=== PATIENT | female | born 2000 | race Caucasian/White ===

== ENCOUNTER 2018-11-30 05:47 | Inpatient (IN) | payer OTHER ==
[2018-11-30] MEDS ORDERED: METHYLERGONOVINE 0.2MG/ML AMP IM PRN (07:47)
[2018-11-30] MEDS ORDERED: Ringers Lactate 1,000 ML IV PRN (07:47)
[2018-11-30] MEDS ORDERED: CARBOPROST TROME 250 MCG/ML IM PRN (07:47)
[2018-11-30] MEDS ORDERED: OXYTOCIN/LR 20 UNIT/1,000 ML BAG IV SCH (08:00)
[2018-11-30] MEDS ORDERED: Ringers Lactate 1,000 ML IV SCH (08:00)
[2018-11-30 08:07] LABS: RPR Titer ND
[2018-11-30 08:12] LABS: Urine Appearance CLEAR; Urine Bilirubin NEGATIVE (NEG); Urine Blood NEGATIVE (NEG); Urine Color YELLOW; Urine Glucose NEGATIVE (NEG); Urine Protein NEGATIVE (NEG); Urine pH 7.5 (5.0-7.0)
[2018-11-30 08:19] LABS: Urine Microscopic Reflex NO UMIC
[2018-11-30 08:20] LABS: Absolute Lymphocytes (CBC) 1.3 K/uL (0.7-4.9); Absolute Monocytes 0.6 K/uL (0.1-1.3); Absolute Neutrophil 6.6 K/uL (1.8-8.0); Basophils % 2.8 % (0-1.3); Eosinophils % 0.6 % (0-4.4); Hematocrit 29.6 % (36.0-45.0); MPV 9.5 fL (7.6-11.3); Monocytes % 6.9 % (3.3-12.3); RBC Red Blood Cell Count 3.45 M/uL (3.86-4.86)
[2018-11-30 08:58] VITALS: BMI 19.3
[2018-11-30 09:31] LABS: Blood Morphology Comment NOT SEEN (NOT SEEN); Platelet Estimate ADEQ; Platelets, Giant FEW
--- NOTE | 2018-11-30 09:47 | P.OBGYNHP ---
Certification for Inpatient Patient admitted to: Inpatient With expected LOS: >2 Midnights Patient will require the following post-hospital care: None Practitioner: I am a practitioner with admitting privileges, knowledge of patient current condition, hospital course, and medical plan of care. Services: Services provided to patient in accordance with Admission requirements found in Title 42 Section 412.3 of the Code of Federal Regulations Patient History Date of Service: 11/30/18 Reason for admission: INDUCTION OF LABOR History of Present Illness: Patient is a 18-year-old 1 para 0 who presents at 39 weeks and 6 days gestation for elective induction of labor. Patient is doing well. She has been having occasional contractions and pelvic pressure. She denies vaginal bleeding. No leakage of fluid. She reports good movements. She began care 10 weeks gestation and been compliant with visits. care is been complicated by small for gestational age. Patient had quad screen done which was low risk. Anatomy ultrasound was normal. She had a growth ultrasound done in mid September which revealed fetus growing well however was smaller than expected for gestational age. Dating ultrasound was performed in the 1st trimester therefore due date is confirmed. The patient also has had some anemia. Her last hemoglobin on November 01 was 10.6. See records for further details. Allergies No Known Allergies Allergy (Unverified 10/24/18 01:12) Home Medications: Ferrous Sulfate 1 tab PO DAILY 11/30/18 Vitamin [ VITAMIN*] 1 tab PO DAILY 11/30/18 - Past Medical/Surgical History Past Medical History: Patient denies medical history Past Surgical History: Patient denies surgical history - Family History Family History: Reviewed- Non-Contributory - Social History Smoking Status: Never smoker Alcohol use: No CD- Drugs: No Caffeine use: Yes Place of Residence: Home Review of Systems 10-point ROS is otherwise unremarkable Physical Examination - Vital Signs Temperature: 98.2 F Blood Pressure: 113/67 Pulse: 90 Respirations: 18 - General General: Alert and in no apparent distress HEENT: Atraumatic Neck: Supple Respiratory: Normal air movement Cardiovascular: No edema, Normal pulses Breasts: Normal configuration, Normal contours, Symmetrical Gastrointestinal: Other (Gravid small for dates) Musculoskeletal: No clubbing, No swelling Integumentary: No rashes, No breakdown Neurological: Normal gait, Normal speech - Female Pelvic External genitalia: Normal Vagina: Normal, Floris, Moist Cervix: Dilation (1 cm), Effacement (60%), station (-3) Uterus: Gravid Adnexa: Unable to evaluate - Obstetrics heart rate tracing: Category 2 Contractions: Frequency (Every 3-4 min) Amniotic membrane: AROM (Clear fluid) Laboratory Data (last 24 hrs) 11/30/18 07:40: WBC 8.9, Hgb 9.9 L, Hct 29.6 L, Plt Count 362 Microbiology Data (last 24 hrs): GBS negative Assessment and Plan - Plan Patient is a 18-year-old 1 para 0 at 39 weeks and 6 days gestation who presents for induction of labor. GBS is negative. Pitocin has been started. Rupture of membranes has been performed and clear fluid was noted. Epidural will be placed at patient's request. Continuous maternal monitoring. Routine intrapartum care. Discharge Plan: Home Plan to discharge in: 48 Hours - Advance Directives Does patient have a Living Will: No Does patient have a Durable POA for Healthcare: No
[2018-11-30] MEDS ORDERED: LIDOCAINE 2% 20 ML MDV IV ONE (10:17)
[2018-11-30] MEDS ORDERED: FENTANYL/BUPIVACAINE/NS/PF 200 MCG/100 ML BAG EP PRN (10:19)
[2018-11-30] MEDS ORDERED: BUPIVACAINE 0.25% PF 10 ML VIAL IV PRN (10:20)
[2018-11-30] MEDS ORDERED: FENTANYL CITR 100 MCG/2 ML IV ONE (10:21)
[2018-11-30] MEDS ORDERED: BUPIVACAINE 0.25% PF 10 ML VIAL ONE (14:48)
[2018-11-30] MEDS ORDERED: FENTANYL CITR 100 MCG/2 ML ONE (14:49)
[2018-11-30] MEDS ORDERED: LIDOCAINE 1% 20 ML MDV ONE (15:03)
[2018-11-30] MEDS ORDERED: BISACODYL 10 MG RECTAL SUPP RECT PRN (16:43)
[2018-11-30] MEDS ORDERED: ACETAMINOPHEN 500 MG TAB PO PRN (16:43)
[2018-11-30] MEDS ORDERED: Oxycodone HCl/Acetaminophen 1 TAB TAB PO PRN (16:43)
[2018-11-30] MEDS ORDERED: METHYLERGONOVINE 0.2 MG TAB PO PRN (16:43)
[2018-11-30] MEDS ORDERED: DOCUSATE NA/SENNA CONC 1 TAB PO PRN (16:43)
[2018-11-30] MEDS ORDERED: ONDANSETRON 4 MG (ODT) TAB PO PRN (16:43)
[2018-11-30 22:50] LABS: RPR (Rapid Plasma Reagin) NON-REACT (NON-REACT)
--- NOTE | 2018-11-30 22:58 | P.OP ---
Date of Service: 11/30/18 Findings and Operative Technique Patient delivered a viable female in cephalic presentation on 11/30/18 at _ ____ over a midline episiotomy via vacuum assisted vaginal delivery due to bradycardia.
[2018-12-01] MEDS: IBUPROFEN 200 MG TAB PO PRN ×3 (01:06→17:45)
[2018-12-01 06:15] LABS: Hematocrit 26.6 % (36.0-45.0); RBC Red Blood Cell Count 3.12 M/uL (3.86-4.86)
[2018-12-01 06:16] LABS: Absolute Lymphocytes (CBC) 1.6 K/uL (0.7-4.9); Absolute Monocytes 0.9 K/uL (0.1-1.3); Absolute Neutrophil 7.1 K/uL (1.8-8.0); Basophils % 0.1 % (0-1.3); Eosinophils % 0.5 % (0-4.4); Lymphocytes % 16.8 % (15.3-44.8); MPV 8.5 fL (7.6-11.3); Monocytes % 9.2 % (3.3-12.3)
[2018-12-01 17:58] VITALS: BP 107/62; TEMP 97.5
[2018-12-06 04:57] LABS: HBsAG Nonreactive (Nonreactive)
== END 2018-12-01 20:47 | disposition home or self-care (01) | DRG 807 ==
LOC: 2ND-WC 07:15
PROVIDERS: ADMIT Student in an Organized Health Care Education/Training Program; ATTEND Student in an Organized Health Care Education/Training Program
PROC: 10D07Z6 Extraction of Products of Conception, Vacuum, Via Natural or Artificial Opening (ICD-10-PCS; principal; 2018-11-30)
PROC: 0W8NXZZ Division of Female Perineum, External Approach (ICD-10-PCS; 2018-11-30)
DX: O76 Abnormality in fetal heart rate and rhythm complicating labor and delivery (principal); Z37.0 Single live birth; Z3A.39 39 weeks gestation of pregnancy
CPT/HCPCS: 36415; 81003; 85025; 86592; 86901; 87340; J2210; J2590; J3010

== ENCOUNTER 2018-12-30 20:56 | Emergency (ER) | payer OTHER ==
--- NOTE | 2018-12-30 23:21 | EDPHYS ---
Physician Documentation [facility] Name: Chaparrita Duggan Age: 18 yrs Sex: Female : 2000 Arrival Date: 12/30/2018 Time: 20:57 Bed 16 Private MD: ED Physician Marvin Voss HPI: 12/30 23:19 This 18 yrs old Female presents to ER via Ambulatory with complaints of pm1 Incisional Pain. 23:19 Onset: The symptoms/episode began/occurred 1 month(s) ago. Associated signs and pm1 symptoms: Pertinent negatives: abdominal pain, chest pain, constipation, dysuria, fever, shortness of breath. Modifying factors: The patient symptoms are alleviated by nothing, the patient symptoms are aggravated by nothing. The patient has not experienced similar symptoms in the past. The patient has not recently seen a physician, has an appointment scheduled, in two weeks for evaluation by Dr. Luevano. patient with vaginal delivery 1 month ago and had a second degree midline episiotomy per review of operative report. Patient reports continued incisional pain from episiotomy. 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 - Social history:: Smoking status: Patient/guardian denies using tobacco. - Ebola Screening: : Patient negative for fever greater than or equal to 101.5 degrees Fahrenheit, and additional compatible Ebola Virus Disease symptoms Patient denies exposure to infectious person Patient denies travel to an Ebola-affected area in the 21 days before illness onset No symptoms or risks identified at this time. ROS: 23:19 Constitutional: Negative for fever, chills, and weight loss, Eyes: Negative for injury, pm1 pain, redness, and discharge, ENT: Negative for injury, pain, and discharge, Neck: Negative for injury, pain, and swelling, Cardiovascular: Negative for chest pain, palpitations, and edema, Respiratory: Negative for shortness of breath, cough, wheezing, and pleuritic chest pain, Abdomen/GI: Negative for abdominal pain, nausea, vomiting, diarrhea, and constipation, Back: Negative for injury and pain, : Negative for injury, bleeding, discharge, and swelling, MS/Extremity: Negative for injury and deformity, Skin: Negative for injury, rash, and discoloration, Neuro: Negative for headache, weakness, numbness, tingling, and seizure. Exam: 23:19 Constitutional: This is a well developed, well nourished patient who is awake, alert, pm1 and in no acute distress. Head/Face: Normocephalic, atraumatic. Eyes: Pupils equal round and reactive to light, extra-ocular motions intact. Lids and lashes normal. Conjunctiva and sclera are non-icteric and not injected. Cornea within normal limits. Periorbital areas with no swelling, redness, or edema. ENT: Nares patent. No nasal discharge, no septal abnormalities noted. Tympanic membranes are normal and external auditory canals are clear. Oropharynx with no redness, swelling, or masses, exudates, or evidence of obstruction, uvula midline. Mucous membranes moist. Neck: Trachea midline, no thyromegaly or masses palpated, and no cervical lymphadenopathy. Supple, full range of motion without nuchal rigidity, or vertebral point tenderness. No Meningismus. Chest/axilla: Normal chest wall appearance and motion. Nontender with no deformity. No lesions are appreciated. Cardiovascular: Regular rate and rhythm with a normal S1 and S2. No gallops, murmurs, or rubs. Normal PMI, no JVD. No pulse deficits. Respiratory: Lungs have equal breath sounds bilaterally, clear to auscultation and percussion. No rales, rhonchi or wheezes noted. No increased work of breathing, no retractions or nasal flaring. Abdomen/GI: Soft, non-tender, with normal bowel sounds. No distension or tympany. No guarding or rebound. No evidence of tenderness throughout. Back: No spinal tenderness. No costovertebral tenderness. Full range of motion. Skin: Warm, dry with normal turgor. Normal color with no rashes, no lesions, and no evidence of cellulitis. MS/ Extremity: Pulses equal, no cyanosis. Neurovascular intact. Full, normal range of motion. 23:19 Abdomen/GI: Rectal exam: rectal tone normal, mass, is not appreciated, tenderness, is not appreciated, Aileen MCCABE. 23:19 : Pelvic Exam: External exam: is normal, Aileen MCCABE. Has some vaginal discharge that appears to be lochia. 23:19 Neuro: Orientation: is normal, Motor: is normal, Sensation: is normal, no obvious gross deficits, Gait: is steady, at a normal pace, without difficulty. Vital Signs: 21:04 BP 115 / 81; Pulse 80; Resp 17; Temp 97.8(O); Pulse Ox 98% on R/A; Weight 46.27 kg; ed1 Height 5 ft. 4 in. (162.56 cm); Pain 9/10; 22:38 BP 112 / 87; Pulse 81; Resp 16 S; Pulse Ox 100% on R/A; cc3 23:20 BP 118 / 73; Pulse 83; Resp 16 S; Pulse Ox 98% on R/A; cc3 21:04 Body Mass Index 17.51 (46.27 kg, 162.56 cm) ed1 MDM: 22:34 Patient medically screened. pm1 23:19 Data reviewed: vital signs. Data interpreted: Pulse oximetry: on room air is 98 %. pm1 Interpretation: normal. Counseling: I had a detailed discussion with the patient and/or guardian regarding: the historical points, exam findings, and any diagnostic results supporting the discharge/admit diagnosis, the need for outpatient follow up, for definitive care, an OB/Gyne specialist, to return to the emergency department if symptoms worsen or persist or if there are any questions or concerns that arise at home. Administered Medications: 23:40 Drug: Doxycycline 100 mg Route: PO; cc3 23:50 Follow up: Response: No adverse reaction cc3 23:40 Drug: [place] 5 mg-325 mg 1 tabs Route: PO; cc3 23:50 Follow up: Response: No adverse reaction; Pain is decreased cc3 Disposition: 12/31 01:58 Co-signature as Attending Physician, Marvin Voss MD. rn Disposition: 12/30/18 23:21 Discharged to Home. Impression: Incisional pain at episiotomy. - Condition is Stable. - Discharge Instructions: Episiotomy, Care After, Episiotomy. - Prescriptions for Doxycycline Hyclate 100 mg Oral Tablet - take 1 tablet by ORAL route every 12 hours; 20 tablet. Tylenol- Codeine #3 300-30 mg Oral Tablet - take 2 tablets by ORAL route every 6 hours As needed; 20 tablet. - Medication Reconciliation Form, Thank You Letter, Antibiotic Education, Prescription Opioid Use form. - Follow up: Emergency Department; When: As needed; Reason: Worsening of condition. Follow up: Debora Almaraz MD; When: 2 - 3 days; Reason: Recheck today's complaints, Continuance of care, Re-evaluation by your physician. - Problem is new. - Symptoms have improved. Signatures: Marvin Voss MD MD rn Amanda Martinez RN RN ed1 Arturo Forde ESTHETICIAN SPA ESTHETICIAN SPA pm1 Aileen Amin cc3 Corrections: (The following items were deleted from the chart) 12/30 23:22 23:21 12/30/2018 23:21 Discharged to Home. Impression: Incisional pain at episiotomy. pm1 Condition is Stable. Forms are Medication Reconciliation Form, Thank You Letter, Antibiotic Education, Prescription Opioid Use. Follow up: Emergency Department; When: As needed; Reason: Worsening of condition. Follow up: Private Physician; When: 2 - 3 days; Reason: Recheck today's complaints, Continuance of care, Re-evaluation by your physician. Problem is new. Symptoms have improved. pm1 23:57 23:22 12/30/2018 23:21 Discharged to Home. Impression: Incisional pain at episiotomy. cc3 Condition is Stable. Discharge Instructions: Episiotomy, Care After, Episiotomy. Prescriptions for Doxycycline Hyclate 100 mg Oral Tablet - take 1 tablet by ORAL route every 12 hours; 20 tablet. and Forms are Medication Reconciliation Form, Thank You Letter, Antibiotic Education, Prescription Opioid Use. Follow up: Emergency Department; When: As needed; Reason: Worsening of condition. Follow up: Debora Almaraz; When: 2 - 3 days; Reason: Recheck today's complaints, Continuance of care, Re-evaluation by your physician. Problem is new. Symptoms have improved. pm1
--- NOTE | 2018-12-30 23:21 | ER ---
Nurse's Notes [facility] Name: Chaparrita Duggan Age: 18 yrs Sex: Female : 2000 Arrival Date: 12/30/2018 Time: 20:57 Bed 16 Private MD: Diagnosis: Incisional pain at episiotomy Presentation: 12/30 21:02 Presenting complaint: Patient states: I gave a month ago and my incision where I ed1 was cut is hurting really bad. I called [facility] and they told me to come to the ER. Transition of care: patient was not received from another setting of care. Onset of symptoms was December 29, 2018. Risk Assessment: Do you want to hurt yourself or someone else? Patient reports no desire to harm self or others. Initial Sepsis Screen: Does the patient meet any 2 criteria? No. Patient's initial sepsis screen is negative. Does the patient have a suspected source of infection? No. Patient's initial sepsis screen is negative. Care prior to arrival: None. 21:02 Method Of Arrival: Ambulatory ed1 21:02 Acuity: HONG 4 ed1 Triage Assessment: 21:04 General: Appears uncomfortable, Behavior is calm, cooperative. Pain: Complains of pain ed1 in vaginal opening Pain currently is 9 out of 10 on a pain scale. Quality of pain is described as burning, stinging. 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 - Social history:: Smoking status: Patient/guardian denies using tobacco. - Ebola Screening: : Patient negative for fever greater than or equal to 101.5 degrees Fahrenheit, and additional compatible Ebola Virus Disease symptoms Patient denies exposure to infectious person Patient denies travel to an Ebola-affected area in the 21 days before illness onset No symptoms or risks identified at this time. Screenin:34 Abuse screen: Denies threats or abuse. Denies injuries from another. Nutritional cc3 screening: No deficits noted. Tuberculosis screening: No symptoms or risk factors identified. Fall Risk Ambulatory Aid- None/Bed Rest/Nurse Assist (0 pts). Gait- Normal/Bed Rest/Wheelchair (0 pts) Mental Status- Oriented to own ability (0 pts). Assessment: 22:34 Reassessment: Patient appears in no apparent distress at this time. Patient and/or cc3 family updated on plan of care and expected duration. Pain level reassessed. Patient is alert, oriented x 3, equal unlabored respirations, skin warm/dry/pink. 23:45 Reassessment: Patient appears in no apparent distress at this time. Patient and/or cc3 family updated on plan of care and expected duration. Pain level reassessed. Patient is alert, oriented x 3, equal unlabored respirations, skin warm/dry/pink. EMERSON Forde discharged the patient home with prescription given. No IV cannula in situ patient left ER vitally stable and ambulatory with her relative. Patient denies pain at this time. Patient states feeling better. Patient states symptoms have improved. Vital Signs: 21:04 BP 115 / 81; Pulse 80; Resp 17; Temp 97.8(O); Pulse Ox 98% on R/A; Weight 46.27 kg; ed1 Height 5 ft. 4 in. (162.56 cm); Pain 9/10; 22:38 BP 112 / 87; Pulse 81; Resp 16 S; Pulse Ox 100% on R/A; cc3 23:20 BP 118 / 73; Pulse 83; Resp 16 S; Pulse Ox 98% on R/A; cc3 21:04 Body Mass Index 17.51 (46.27 kg, 162.56 cm) ed1 ED Course: 20:57 Patient arrived in ED. as 21:04 Triage completed. ed1 21:04 Arm band placed on right wrist. ed1 22:34 Aileen Amin is Primary Nurse. cc3 22:34 Arturo Forde NP is PHCP. pm1 22:34 Marvin Voss MD is Attending Physician. pm1 22:34 Patient has correct armband on for positive identification. Bed in low position. Call cc3 light in reach. Side rails up X 1. Pulse ox on. NIBP on. 23:22 Debora Almaraz MD is Referral Physician. pm1 23:45 No provider procedures requiring assistance completed. Patient did not have IV access cc3 during this emergency room visit. Administered Medications: 23:40 Drug: Doxycycline 100 mg Route: PO; cc3 23:50 Follow up: Response: No adverse reaction cc3 23:40 Drug: [place] 5 mg-325 mg 1 tabs Route: PO; cc3 23:50 Follow up: Response: No adverse reaction; Pain is decreased cc3 Outcome: 23:21 Discharge ordered by MD. pm1 23:45 Discharged to home ambulatory, with family. cc3 23:45 Condition: stable 23:45 Discharge instructions given to patient, family, Instructed on discharge instructions, follow up and referral plans. medication usage, Demonstrated understanding of instructions, follow-up care, medications, Prescriptions given X 2. 23:57 Patient left the ED. cc3 Signatures: Christen Drake Erika, RN RN ed1 Arturo Forde NP CAMP HEAD COUNSELOR pm1 Aileen Amin cc3 Corrections: (The following items were deleted from the chart) 0505 04:37 05/04 22:34 Reassessment: Patient appears in no apparent distress at this time. Patient cc3 and/or family updated on plan of care and expected duration. Pain level reassessed. Patient is alert, oriented x 3, equal unlabored respirations, skin warm/dry/pink. cc3
[2018-12-30] MEDS ORDERED: HYDROCODONE/APAP 5/325 MG TAB ONE (23:50)
[2018-12-30] MEDS ORDERED: DOXYCYCLINE 100 MG CAP PO ONE (23:50)
[2018-12-31 01:02] VITALS: BP 115/81; TEMP 97.8; O2SAT 98
== END 2018-12-30 23:57 | disposition home or self-care (01) ==
LOC: ER 20:56
DX: G89.18 Other acute postprocedural pain (principal)
CPT/HCPCS: 99283

== ENCOUNTER 2019-10-10 19:11 | Emergency (ER) | payer OTHER ==
--- OUTSIDE RECORDS SUMMARY | 2019-10-10 19:13 | XMS REPORT ---
:2000 [facility] Address [address] [place] [address] Dr. Fong[address] [place] [id number] Care Team Providers Name Role Phone Unavailable Unavailable Unavailable Problems This patient has no known problems. Allergies, Adverse Reactions, Alerts This patient has no known allergies or adverse reactions. Medications This patient has no known medications.
--- NOTE | 2019-10-10 19:53 | ER ---
Nurse's Notes [facility] Name: Chaparrita Duggan Age: 19 yrs Sex: Female : 2000 Arrival Date: 10/10/2019 Time: 19:14 Bed 19 Private MD: Diagnosis: Acute bronchitis;Acute sinusitis Presentation: 10/10 19:20 Presenting complaint: Patient states: Cough x 1 week ago. 2-3 days ago R cheek pain ca1 which I thought was a toothache. Then I have runny nose with yellow-greenish drainage and headaches. The cough became worse this past few days that I throw up at times. I am at 17 wks. Transition of care: patient was not received from another setting of care. Onset of symptoms was October 10, 2019. Risk Assessment: Do you want to hurt yourself or someone else? Patient reports no desire to harm self or others. Initial Sepsis Screen: Does the patient meet any 2 criteria? No. Patient's initial sepsis screen is negative. Does the patient have a suspected source of infection? No. Patient's initial sepsis screen is negative. Care prior to arrival: None. 19:20 Method Of Arrival: Ambulatory ca1 19:20 Acuity: HONG 3 ca1 Triage Assessment: 19:30 Headache History: The patient has had previous headaches. Pain: Pain currently is 3 out wh of 10 on a pain scale. Pain began gradually, Also complains of no other associated symptoms. 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 - Coronavirus screen:: The patient has NOT traveled to [place] in the past 14 days. The patient has NOT had contact with known/suspected case of Coronavirus?. - Social history:: Smoking status: Patient denies any tobacco usage or history of. - Ebola Screening: : Patient negative for fever greater than or equal to 101.5 degrees Fahrenheit, and additional compatible Ebola Virus Disease symptoms Patient denies exposure to infectious person Patient denies travel to an Ebola-affected area in the 21 days before illness onset No symptoms or risks identified at this time. Screenin:30 Abuse screen: Denies threats or abuse. Denies injuries from another. Nutritional wh screening: No deficits noted. Tuberculosis screening: No symptoms or risk factors identified. Fall Risk None identified. Assessment: 19:30 General: Appears in no apparent distress. Behavior is calm, cooperative, appropriate wh for age. Pain: Complains of pain in right cheek and left cheek. Neuro: Level of Consciousness is awake, alert, obeys commands, Oriented to person, place, time, situation, Appropriate for age. Cardiovascular: Heart tones S1 S2. Respiratory: Reports cough that is Airway is patent Respiratory effort is even, unlabored, Respiratory pattern is regular, symmetrical, Breath sounds are clear bilaterally. GI: Abdomen is flat, non-distended. : No signs and/or symptoms were reported regarding the genitourinary system. EENT: Throat is pink. Derm: Skin is intact, is healthy with good turgor, Skin is pink, warm \T\ dry. normal. Musculoskeletal: Circulation, motion, and sensation intact. Vital Signs: 19:24 BP 112 / 69; Pulse 87; Resp 19 S; Temp 97.9(TE); Pulse Ox 99% on R/A; Weight 45.36 kg ca1 (R); Height 5 ft. 4 in. (162.56 cm) (R); Pain 5/10; 19:24 Body Mass Index 17.17 (45.36 kg, 162.56 cm) ca1 ED Course: 19:14 Patient arrived in ED. ag3 19:24 Triage completed. ca1 19:24 Arm band placed on right wrist. ca1 19:27 Alona Meneses is Primary Nurse. wh 19:30 Tootie Gaspar FNP-C is PHCP. snw 19:30 Marvin Voss MD is Attending Physician. snw 19:30 Patient has correct armband on for positive identification. Bed in low position. Call wh light in reach. Side rails up X 1. Pulse ox on. NIBP on. 20:09 No provider procedures requiring assistance completed. Patient did not have IV access wh during this emergency room visit. Administered Medications: 20:00 Drug: Augmentin 875 mg Route: PO; wh 20:06 Follow up: Response: No adverse reaction wh Outcome: 19:52 Discharge ordered by MD. villeda 20:09 Discharged to home ambulatory, with family. 20:09 Condition: stable 20:09 Discharge instructions given to patient, family, Instructed on discharge instructions, follow up and referral plans. medication usage, POC Demonstrated understanding of instructions, follow-up care, medications, POC Prescriptions given X 1. 20:10 Patient left the ED. Signatures: Tootie Gaspar, DRY END TESTER-C DRY END TESTER-Csnw Alona Meneses Mariangel Orellana ag3 Eugenia Summers RN RN ca1 Corrections: (The following items were deleted from the chart) 19:26 19:24 BP 112 / 69; Pulse 87bpm; Resp 19bpm; Spontaneous; Pulse Ox 99% RA; Temp 97.9F ca1 Temporal; 45.36 kg Reported; Height 5 ft. 4 in. Reported; BMI: 17.1; ca1
--- NOTE | 2019-10-10 19:54 | EDPHYS ---
Physician Documentation [facility] Name: Chaparrita Duggan Age: 19 yrs Sex: Female : 2000 Arrival Date: 10/10/2019 Time: 19:14 Bed 19 Private MD: ED Physician Marvin Voss HPI: 10/10 20:15 This 19 yrs old Female presents to ER via Ambulatory with complaints of snw Cough, Runny Nose, Headache. 20:15 The patient or guardian reports cough, flu symptoms, hoarse voice. Onset: The snw symptoms/episode began/occurred suddenly, 5 day(s) ago, and became persistent. Severity of symptoms: At their worst the symptoms were moderate, severe. Modifying factors: the symptoms are aggravated by at 17 weeks. Associated signs and symptoms: Pertinent positives: rhinorrhea, sore throat, vomiting, productive cough. It is unknown whether or not the patient has had similar symptoms in the past. It is unknown whether or not the patient has recently seen a physician. 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 - Coronavirus screen:: The patient has NOT traveled to [place] in the past 14 days. The patient has NOT had contact with known/suspected case of Coronavirus?. - Social history:: Smoking status: Patient denies any tobacco usage or history of. - Ebola Screening: : Patient negative for fever greater than or equal to 101.5 degrees Fahrenheit, and additional compatible Ebola Virus Disease symptoms Patient denies exposure to infectious person Patient denies travel to an Ebola-affected area in the 21 days before illness onset No symptoms or risks identified at this time. ROS: 20:14 Eyes: Negative for injury, pain, redness, and discharge. snw 20:14 Neck: Negative for injury, pain, and swelling, Cardiovascular: Negative for chest pain, palpitations, and edema. 20:14 Back: Negative for injury and pain, : Negative for injury, bleeding, discharge, and swelling, MS/Extremity: Negative for injury and deformity, Skin: Negative for injury, rash, and discoloration. 20:14 Constitutional: Positive for body aches, fatigue, malaise, poor PO intake. 20:14 ENT: Positive for hoarseness, rhinorrhea, sinus congestion, sore throat. 20:14 Respiratory: Positive for cough, with green sputum. 20:14 Abdomen/GI: Positive for nausea and vomiting. 20:14 Neuro: Positive for dizziness. Exam: 20:12 Constitutional: This is a well developed, well nourished patient who is awake, alert, snw and in no acute distress. Head/Face: Normocephalic, atraumatic. Eyes: Pupils equal round and reactive to light, extra-ocular motions intact. Lids and lashes normal. Conjunctiva and sclera are non-icteric and not injected. Cornea within normal limits. Periorbital areas with no swelling, redness, or edema. 20:12 Neck: Trachea midline, no thyromegaly or masses palpated, and no cervical lymphadenopathy. Supple, full range of motion without nuchal rigidity, or vertebral point tenderness. No Meningismus. Chest/axilla: Normal chest wall appearance and motion. Nontender with no deformity. No lesions are appreciated. Cardiovascular: Regular rate and rhythm with a normal S1 and S2. No gallops, murmurs, or rubs. Normal PMI, no JVD. No pulse deficits. 20:12 Abdomen/GI: Soft, non-tender, with normal bowel sounds. No distension or tympany. No guarding or rebound. No evidence of tenderness throughout. Back: No spinal tenderness. No costovertebral tenderness. Full range of motion. Skin: Warm, dry with normal turgor. Normal color with no rashes, no lesions, and no evidence of cellulitis. MS/ Extremity: Pulses equal, no cyanosis. Neurovascular intact. Full, normal range of motion. Neuro: Awake and alert, GCS 15, oriented to person, place, time, and situation. Cranial nerves II-XII grossly intact. Motor strength 5/5 in all extremities. Sensory grossly intact. Cerebellar exam normal. Normal gait. Psych: Awake, alert, with orientation to person, place and time. Behavior, mood, and affect are within normal limits. 20:12 ENT: Ear canal(s): are normal, TM's: are normal, Nose: Nasal mucosa: edematous, Mouth: is normal, Posterior pharynx: erythema, that is moderate, Voice: is hoarse. 20:12 Respiratory: Respirations: normal, Breath sounds: are clear throughout, incessant cough. Vital Signs: 19:24 BP 112 / 69; Pulse 87; Resp 19 S; Temp 97.9(TE); Pulse Ox 99% on R/A; Weight 45.36 kg ca1 (R); Height 5 ft. 4 in. (162.56 cm) (R); Pain 5/10; 19:24 Body Mass Index 17.17 (45.36 kg, 162.56 cm) ca1 MDM: 19:42 Patient medically screened. snw 20:13 Data reviewed: vital signs, nurses notes. Data interpreted: Pulse oximetry: on room air snw is 99 %. Interpretation: normal. Counseling: I had a detailed discussion with the patient and/or guardian regarding: the historical points, exam findings, and any diagnostic results supporting the discharge/admit diagnosis, lab results, the need for outpatient follow up, to return to the emergency department if symptoms worsen or persist or if there are any questions or concerns that arise at home. Special discussion: Based on the history and exam findings, there is no indication for further emergent testing or inpatient evaluation. I discussed with the patient/guardian the need to see the OB Gyne specialist for further evaluation of the symptoms. I discussed with the patient/guardian the need to see the primary care provider for further evaluation of the symptoms. 10/10 19:55 Order name: Urine Dipstick--Ancillary (enter results) ct 10/10 19:55 Order name: Urine --Ancillary (enter results) ct 10/10 19:33 Order name: Urine Dipstick-Ancillary (obtain specimen); Complete Time: 19:43 10/10 19:33 Order name: Urine Test (obtain specimen); Complete Time: 19:43 Administered Medications: 20:00 Drug: Augmentin 875 mg Route: PO; 20:06 Follow up: Response: No adverse reaction Disposition: 22:11 Co-signature as Attending Physician, Marvin Voss MD. rn Disposition: 10/10/19 19:52 Discharged to Home. Impression: Acute bronchitis, Acute sinusitis. - Condition is Stable. - Discharge Instructions: Acute Bronchitis, Adult, Sinusitis, Adult, Cough, Adult, Rehydration, Adult. - Prescriptions for Augmentin 875- 125 mg Oral Tablet - take 1 tablet by ORAL route every 12 hours for 10 days; 20 tablet. - Work release form, Medication Reconciliation Form, Thank You Letter, Antibiotic Education, Prescription Opioid Use form. - Follow up: Emergency Department; When: As needed; Reason: Worsening of condition. Follow up: Private Physician; When: 2 - 3 days; Reason: Recheck today's complaints, Continuance of care, Re-evaluation by your physician. 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 Impression: Acute bronchitis; Acute wh sinusitis. Condition is Stable. Forms are Medication Reconciliation Form, Thank You Letter, Antibiotic Education, Prescription Opioid Use. Follow up: Emergency Department; When: As needed; Reason: Worsening of condition. Follow up: Private Physician; When: 2 - 3 days; Reason: Recheck today's complaints, Continuance of care, Re-evaluation by your physician. snw
[2019-10-10] MEDS ORDERED: AMOX/K CLAV 875 MG TAB ONE (20:05)
[2019-10-10 20:26] LABS: Urine Blood NEGATIVE (NEG); Urine Glucose NEGATIVE (NEG); Urine Protein NEGATIVE (NEG); Urine Specific Gravity 1.025 (1.005-1.030)
[2019-10-12 01:11] VITALS: BP 112/69; TEMP 97.9; O2SAT 99
== END 2019-10-10 20:10 | disposition home or self-care (01) ==
LOC: ER 19:11
DX: O99.512 Diseases of the respiratory system complicating pregnancy, second trimester (principal); J20.9 Acute bronchitis, unspecified; Z3A.17 17 weeks gestation of pregnancy; J01.90 Acute sinusitis, unspecified
CPT/HCPCS: 81003; 81025; 99283

== ENCOUNTER 2020-05-27 13:05 | Emergency (ER) | payer OTHER, SELFPAY ==
--- OUTSIDE RECORDS SUMMARY | 2020-05-27 13:09 | XMS REPORT | Continuity of Care Document ---
:2000 Author Organization [facility] t Address [address] [place] [address] [address] [place] [address] Care Team Providers Name Role Phone Enoc Rea Attending Clinician Problems This patient has no known problems. Allergies, Adverse Reactions, Alerts This patient has no known allergies or adverse reactions. Medications This patient has no known medications. Procedures This patient has no known procedures. Encounters Start End Encounter Admission Attending Care Care Encounter Source Date/Time Date/Time Type Type Clinicians Facility Department ID 2020-04-22 2020-04-22 Office MIYA Jonas [id number] 09:34:53 10:40:34 Visit Berta Stubbs DELPHI PROGRAMMER [id number] [facility] [id number] MATERNAL [id number] & CHILD [address] [place] [address] Results This patient has no known results.
--- OUTSIDE RECORDS SUMMARY | 2020-05-27 13:09 | XMS REPORT | Summary of Care ---
:2000 Author Organization [facility] Address [address] [place] [address] Care Team Providers Name Role Phone Tess Salas Primary Care Provider Reason for Referral (Routine) Status Reason Specialty Diagnoses / Referred By Referred To Procedures Contact Contact New Request Maternal Diagnoses High-risk in third trimester [place], Medicine Procedures CONSULT MATERNAL MEDICINE ULTRASOUND Preferred Location: Tali Stubbs [place] [address] [place] [address] Reason for Visit Reason Comments Care Encounter Details Date Type Department Care Team Description 03/04/2020 Routine [facility]- [place], High- risk in third trimester (Primary Dx); Visit ARI Basnal Multiparity; [address] Anemia of mother in , antepartum [address] [facility] [address] [place], [place] [phone] Allergies No Known Allergiesdocumented as of this encounter (statuses as of 03/04/2020) Medications Medication Sig Dispensed Refills Start Date End Date Status PNV 67-iron ps-folate Take 1 capsule by 30 capsule 11 9 Active no.1-dha (VITAFOL mouth daily. ULTRA) 29 mg iron- 1 mg-200 mg CapIndications: High-risk in first trimester Miscellaneous Medical Use as directed 1 Each 0 01/07/2020 Active Supply (BLOOD PRESSURE CUFF) MiscIndications: High-risk in third trimester ferrous sulfate 325 mg Take 1 tablet by 60 tablet 3 02/25/2020 Active (65 mg iron) mouth 2 (two) tabletIndications: times daily. Anemia of mother in , antepartum ascorbic acid, vitamin Take 1 tablet by 90 tablet 2 02/25/2020 Active C, 500 mg mouth 3 (three) tabletIndications: times daily. Anemia of mother in , antepartum documented as of this encounter (statuses as of 03/04/2020) Active Problems Problem Noted Date Anemia of mother in , antepartum 02/25/2020 Pain of round ligament during 12/25/2019 Adult BMI <19 kg/sq m 08/06/2019 Multiparity 08/06/2019 Family history of diabetes mellitus 08/06/2019 High-risk in second trimester 08/06/2019 Need for prophylactic vaccination and inoculation agai nst influenza 08/06/2019 Estimated Date of Delivery Comments Yes 03/17/2020 Based on Ultrasound documented as of this encounter (statuses as of 03/04/2020) Immunizations Name Administration Dates Next Due Influenza Virus Vaccine Quad .5 mL IM 6+ MO 08/06/2019 TDAP (ADACEL) VACCINE 12/25/2019 documented as of this encounter Social History Tobacco Use Types Packs/Day Years Used Date Never Smoker Smokeless Tobacco: Never Used Alcohol Use Drinks/Week oz/Week Comments Not Currently Estimated Date of Delivery Comments Yes 03/17/2020 Based on Ultrasound Sex Assigned at Date Recorded Not on file Job Start Date Occupation Industry Not on file Not on file Not on file Travel History Travel Start Travel End No recent travel history available. COVID-19 Exposure Response Date Recorded In the last month, have you been in contact with No / Unsure 03/04/2020 2:10 PM CDT someone who was confirmed or suspected to have Coronavirus / COVID-19? documented as of this encounter Last Filed Vital Signs Vital Sign Reading Time Taken Comments Blood Pressure 95/52 03/04/2020 2:10 PM CDT Pulse 89 03/04/2020 2:10 PM CDT Temperature 36.3 C (97.4 F) 03/04/2020 2:10 PM CDT Respiratory Rate 16 03/04/2020 2:10 PM CDT Oxygen Saturation - - Inhaled Oxygen Concentration - - Weight 51.3 kg (113 lb) 03/04/2020 2:10 PM CDT Height 162.6 cm (5' 4") 03/04/2020 2:10 PM CDT Body Mass Index 19.4 03/04/2020 2:10 PM CDT documented in this encounter Progress Notes Berta Jonas, WHCNP - 03/04/2020 2:00 PM CDT Chief complaint: Chief Complaint Patient presents with Care HPI CC: Follow Up Visit Chaparrita Duggan is a 20 year old, , /White female. Patient's last menstrual period was 07/18/2019 (lmp unknown). She is 38w1d with an intrauterine . Her estimated date of delivery is 03/17/2020, by Ultrasound. She has no complaints today. She reports +FM and denies contractions, LOF and bleeding today. Histories OB History Para Term AB Living 2 1 1 1 SAB TAB Ectopic Multiple Live Births 1 # Outcome Date GA Lbr César/2nd Weight Sex Delivery Anes PTL Lv 2 Current 1 Term 11/30/18 40w0d 6 lb 5 oz (2.863 kg) F NORMAL SPONT [place] Past Medical History: Diagnosis Date Anemia during and after Family history of diabetes mellitus 08/06/2019 Family History Problem Relation Age of Onset Asthma Mother Other - see comments Mother thyroid Diabetes Father Other - see comments Sister thyroid No Significant Medical Problems Brother No Significant Medical Problems Maternal Aunt No Significant Medical Problems Maternal Uncle No Significant Medical Problems Paternal Aunt No Significant Medical Problems Paternal Uncle Colon Cancer Maternal Grandmother No Significant Medical Problems Maternal Grandfather Diabetes Paternal Grandmother Diabetes Paternal Grandfather Family Status Relation Name Status Mo Alive Fa Alive Sis Alive Bro Alive MAunt Alive MUnc Alive PAunt Alive PUnc Alive MGMo MGFa PGMo Alive PGFa Alive No past surgical history on file. Social History Socioeconomic History Marital status: Single Spouse name: Not on file Number of children: Not on file Years of education: Not on file Highest education level: Not on file Occupational History Not on file Social Needs Financial resource strain: Not on file Food insecurity: Worry: Not on file Inability: Not on file Transportation needs: Medical: Not on file Non-medical: Not on file Tobacco Use Smoking status: Never Smoker Smokeless tobacco: Never Used Substance and Sexual Activity Alcohol use: Not Currently Drug use: Never Sexual activity: Yes Partners: Male control/protection: None Comment: last sexual intercourse 08/01/2019 Lifestyle Physical activity: Days per week: Not on file Minutes per session: Not on file Stress: Not on file Relationships Social connections: Talks on phone: Not on file Gets together: Not on file Attends uatsdin service: Not on file Active member of club or organization: Not on file Attends meetings of clubs or organizations: Not on file Relationship status: Not on file Intimate partner violence: Fear of current or ex partner: Not on file Emotionally abused: Not on file Physically abused: Not on file Forced sexual activity: Not on file Other Topics Concern Not on file Social History Narrative Sabianism preference is [employer]ology. Patient lives with family. Patient has 1 cat. Social History Substance and Sexual Activity Sexual Activity Yes Partners: Male control/protection: None Comment: last sexual intercourse 08/01/2019 Labs No new labs and Routine Visit on 02/22/2020 Component Date Value C. trachomatis Nucleic A* 02/22/2020 Negative N. gonorrhoeae Nucleic A* 02/22/2020 Negative Group B Streptococcus by* 02/22/2020 Negative CoV-2 IgG 02/22/2020 Negative WBC 02/22/2020 8.60 RBC 02/22/2020 3.30* HGB 02/22/2020 9.6* HCT 02/22/2020 29.6* MCV 02/22/2020 89.7 MCH 02/22/2020 29.1 MCHC 02/22/2020 32.4 RDW-SD 02/22/2020 40.6 RDW-CV 02/22/2020 12.8 PLT 02/22/2020 349 MPV 02/22/2020 10.5 NRBC/100 WBC 02/22/2020 0.0 NRBC x10^3 02/22/2020 <0.01 GRAN MAT (NEUT) % 02/22/2020 72.2 IMM GRAN % 02/22/2020 0.80 LYMPH % 02/22/2020 20.8 MONO % 02/22/2020 5.8 EOS % 02/22/2020 0.1 BASO % 02/22/2020 0.3 GRAN MAT x10^3(ANC) 02/22/2020 6.20 IMM GRAN x10^3 02/22/2020 0.07* LYMPH x10^3 02/22/2020 1.79 MONO x10^3 02/22/2020 0.50 EOS x10^3 02/22/2020 <0.03* BASO x10^3 02/22/2020 0.03 POCT PH U 02/22/2020 . POCT U LEUK EST 02/22/2020 . POCT U NIT 02/22/2020 . POCT U PROT 02/22/2020 trace POCT U GLU 02/22/2020 neg POCT U KETONE 02/22/2020 . POCT U BLD 02/22/2020 . Routine Visit on 02/08/2020 Component Date Value POCT PH U 02/08/2020 . POCT U LEUK EST 02/08/2020 . POCT U NIT 02/08/2020 . POCT U PROT 02/08/2020 Trace POCT U GLU 02/08/2020 Neg POCT U KETONE 02/08/2020 . POCT U BLD 02/08/2020 . Urgent Care on 02/04/2020 Component Date Value SARS-CoV-2 PCR 02/04/2020 Not Detected POCT GP A STREP 02/04/2020 Negative Telemedicine Visit on 01/25/2020 Component Date Value POCT PH U 01/25/2020 n/a POCT U LEUK EST 01/25/2020 n/a POCT U NIT 01/25/2020 n/a POCT U PROT 01/25/2020 trace POCT U GLU 01/25/2020 neg POCT U KETONE 01/25/2020 n/a POCT U BLD 01/25/2020 n/a Admission on 01/18/2020, Discharged on 01/18/2020 Component Date Value SARS-CoV-2 PCR 01/18/2020 Not Detected Routine Visit on 12/25/2019 Component Date Value HIV 1/2 Ag-Ab with Reflex 12/25/2019 Negative HIV Semi-quantitative 12/25/2019 0.07 SYPH IGG 12/25/2019 Non-reactive POCT PH U 12/25/2019 . POCT U LEUK EST 12/25/2019 . POCT U NIT 12/25/2019 . POCT U PROT 12/25/2019 Trace POCT U GLU 12/25/2019 Neg POCT U KETONE 12/25/2019 . POCT U BLD 12/25/2019 . Routine Visit on 12/11/2019 Component Date Value POCT PH U 12/11/2019 . POCT U LEUK EST 12/11/2019 . POCT U NIT 12/11/2019 . POCT U PROT 12/11/2019 Trace POCT U GLU 12/11/2019 Neg POCT U KETONE 12/11/2019 . POCT U BLD 12/11/2019 . GLUC 1 HR 12/11/2019 113* WBC 12/11/2019 7.56 RBC 12/11/2019 3.42* HGB 12/11/2019 10.6* HCT 12/11/2019 32.5* MCV 12/11/2019 95.0 MCH 12/11/2019 31.0 MCHC 12/11/2019 32.6 RDW-SD 12/11/2019 44.9 RDW-CV 12/11/2019 13.0 PLT 12/11/2019 310 MPV 12/11/2019 11.3 NRBC/100 WBC 12/11/2019 0.0 NRBC x10^3 12/11/2019 <0.01 GRAN MAT (NEUT) % 12/11/2019 76.5 IMM GRAN % 12/11/2019 0.70 LYMPH % 12/11/2019 15.6 MONO % 12/11/2019 6.5 EOS % 12/11/2019 0.4 BASO % 12/11/2019 0.3 GRAN MAT x10^3(ANC) 12/11/2019 5.79 IMM GRAN x10^3 12/11/2019 0.05 LYMPH x10^3 12/11/2019 1.18* MONO x10^3 12/11/2019 0.49 EOS x10^3 12/11/2019 0.03 BASO x10^3 12/11/2019 <0.03 Radiology Radiology pending. Allergies Chaparrita has No Known Allergies. Medications Chaparrita has a current medication list which includes the following prescription(s): ascorbic acid (vitamin c), ferrous sulfate, miscellaneous medical supply, and pnv 67-iron ps-folate no.1-dha. Review of Systems Constitutional: Negative. HENT: Negative. Eyes: Negative. Respiratory: Negative. Breasts: Negative. Cardiovascular: Negative. Gastrointestinal: Negative. Genitourinary: Negative. Musculoskeletal: Negative. Skin: Negative. Neurological: Negative. Psychiatric/Behavioral: Negative. Endocrine: Endocrine negative BP 95/52 (BP Location: Right arm, Patient Position: Sitting, BP CUFF SIZE: Adult Medium) | Pulse 89 | Temp 36.3 C (97.4 F) (Oral) | Resp 16 | Ht 5' 4" (1.626 m) | Wt 113 lb (51.3 kg) | LMP 07/18/2019 (LMP Unknown) | BMI 19.40 kg/m Pregravid BMI: 16.8 Physical Exam PHYSICAL: General Exam: Neurological: Normal Abdomen: Normal gravid Extremities: Normal Pelvic Exam: Uterus: 35 Weeks Assessment/Plan Return to clinic in 1 weeks. Denies zika virus risk, signs and symptoms such as fever,rash,joint pain, conjunctivitis (red eyes),muscle pain, headaches; outside [place] travel to areas affected by zika, and FOB exposure to zika. Educated on use of mosquito repellent. High-risk in third trimester (primary encounter diagnosis) Multiparity Comment: routine Plan: POCT URINALYSIS W/O SPECIFIC GRAVITY, CONSULT MATERNAL MEDICINE ULTRASOUND Preferred Location: [place] Anemia of mother in , antepartum Comment: continue iron, PNV and iron-rich foods Plan: monitor This visit did not involve counseling and coordination that comprised more than 50% of the visit time. ARI Escamilla 03/04/2020 2:31 PM documented in this encounter Plan of Treatment Date Type Specialty Care Team Description 03/12/2020 Routine Visit OB Satellites Itzel Jonas WHCNP [address] [address] [phone] Health Maintenance Due Date Last Done Comments INFLUENZA VACCINE (#1) 2020 08/06/2019 HPV VACCINES (1 - Female 07/27/2020 Postpon ed from 2009 2-dose series) ( or ) MENINGOCOCCAL B VACCINES (1 08/05/2020 Post poned from 02/18/2008 of 2 - Risk Bexsero 2-dose (Preg nant or series) ) CHLAMYDIA SCREENING 02/21/2021 02/22/2020, 08/06/2019 Depression Screening 03/04/2021 03/04/2020 PAP SMEAR 08/06/2022 08/06/2019 DTaP,Tdap,and Td Vaccines (2 12/24/2029 12/25/2019 - Td) MENINGOCOCCAL VACCINE Aged Out No longer eligible based on patient's age to complete this to pic PNEUMOCOCCAL 0-64 YEARS Aged Out No longe r eligible based COMBINED SERIES on patient's age to complete this to pic documented as of this encounter Procedures Procedure Name Priority Date/Time Associated Comments Diagnosis POCT URINALYSIS W/O Routine 03/04/2020 2:12 PM High-risk preg arina Results for this SPECIFIC GRAVITY CDT in third trimester proce dure are in the results section. documented in this encounter Results POCT URINALYSIS W/O SPECIFIC GRAVITY (03/04/2020 2:12 PM CDT) Pathologist Sig nature POCT PH U . 5 - 8 mg/dl POCT U LEUK EST . Negative - Negative POCT U NIT . Negative - Negative POCT U PROT Trace Negative - Negative POCT U GLU Neg Negative - Negative POCT U KETONE . Negative - Negative POCT U BLD . Negative - Negative Specimen Urine - URINE, CLEAN CATCH documented in this encounter Visit Diagnoses Diagnosis High-risk in third trimester - Primary Multiparity Anemia of mother in , antepartu m Anemia, antepartum documented in this encounter Insurance Payer Benefit Plan / Subscriber ID Effective Phone Address [facility] xxxxxxxxx 2020-Prese [address] Medic aid HEALTH CHOICE - [place] [id number] 1 MANAGED MEDICAID [place], [place] MEDICAID [phone] documented as of this encounter
--- OUTSIDE RECORDS SUMMARY | 2020-05-27 13:09 | XMS REPORT | Summary of Care ---
:2000 Author Organization [facility] Address [address] [place] [address] Care Team Providers Name Role Phone Tess Salas OVERCASTER Primary Care Provider Reason for Visit Reason Comments Assessment Encounter Details Date Type Department Care Team Description 03/11/2020 Telephone [facility]- A Berta Tello, Assessment [address] [facility] [place] [address] [facility] [address] [phone] [place], [place] [address] [phone] Allergies No Known Allergiesdocumented as of this encounter (statuses as of 03/11/2020) Medications Medication Sig Dispensed Refills Start Date End Date Status PNV 67-iron ps-folate Take 1 capsule by 30 capsule 11 08/27/ 9 Active no.1-dha (VITAFOL mouth daily. ULTRA) [...] as of this encounter (statuses as of 03/11/2020) Active Problems Problem Noted Date Anemia of [...] as of this encounter (statuses as of 03/11/2020) Immunizations Name Administration Dates Next Due Influenza [...] of this encounter Last Filed Vital Signs Not on filedocumented in this encounter Plan of Treatment Date Type Specialty Care Team Description 03/12/2020 Routine Visit OB Satellites Itzel Jonas, CNP [address] [address] [phone] Health Maintenance Due Date Last Done Comments [...] to pic documented as of this encounter Results Not on filedocumented in this encounter Insurance Payer Benefit Plan / Subscriber ID Effective Phone Address [facility] xxxxxxxxx 2020-Prese [address] Medic aid HEALTH CHOICE - HEALTH CHOICE nt [id number] 1 MANAGED MEDICAID [place], [place] [phone] documented as of this encounter
--- OUTSIDE RECORDS SUMMARY | 2020-05-27 13:10 | XMS REPORT | Summary of Care ---
:2000 Author Organization [facility] Address [address] [place] [address] Care Team Providers Name Role Phone Tess Salas Primary Care Provider Reason for Visit Reason Comments ULTRASOUND (Routine) Status Reason Specialty Diagnoses / Referred By Referred To Procedures Contact Contact Closed Maternal Diagnoses High-risk in third trimester [place], Medicine Procedures CONSULT MATERNAL MEDICINE ULTRASOUND Preferred [facility] [place] [facility] [address] [place] [address] Encounter Details Date Type Department Care Team Description 03/11[facility]2020 [facility] [place] size-date discrepancy in third trimester; Ultrasound- Tali VILLANUEVA IUGR (intrauterine growth restriction) a ffecting care of mother, third trimester, not applicable or unspecified fetus [address] [phone] Allergies No Known Allergiesdocumented as of this [...] 03/12/2020 Routine Visit [facility] Itzel Jonas, [facility] [address] [place], [place] [address] [phone] Health Maintenance Due Date Last Done Comments [...] Results Not on filedocumented in this encounter Visit Diagnoses Diagnosis Uterine size-date discrepancy in third t rimester Uterine size date discrepancy, antepartu m condition or complication IUGR (intrauterine growth restriction) a ffecting care of mother, third trimester, not applicable or unspecified fetus documented in this encounter Insurance Payer Benefit Plan / Subscriber ID Effective Phone Address [employer] [facility] COMMUNITY xxxxxxxxx 2020-Prese [address] Medic aid HEALTH CHOICE - HEALTH CHOICE nt [id number] 1 MANAGED MEDICAID [place], [place] MEDICAID [id number] documented as of this encounter
--- OUTSIDE RECORDS SUMMARY | 2020-05-27 13:10 | XMS REPORT | Summary of Care ---
:1998 Author Organization [facility] Address [address] [place] [address] Care Team Providers Name Role Phone Tess Salas Primary Care Provider Reason for Referral (Routine) Status Reason Specialty Diagnoses / Referred By Referred To Procedures Contact Contact New Request Infectious Disease Diagnoses HIV antibody positive Jaylen Gaviria Procedures CONSULT INFECTIOUS DISEASE MD Ruthie [address] [place] [id number] [place] [id number] Reason for Visit Reason Comments Results Encounter Details Date Type Department Care Team Description 04/01/2020 Telephone [facility] and Rowena Armando MD Results Clinics [address] [place] [id number] [place] [address] Allergies No Known Allergiesdocumented as of this encounter (statuses as of 04/01/2020) Medications Medication Sig Dispensed Refills Start Date End Date Status vitamin w/FA Take 1 tablet by 100 tablet 3 03/13/2020 Active tabletIndications: mouth daily. Adult BMI <19 kg/sq m, Multiparity, Anemia of mother in , antepartum, 39 weeks gestation of , (spontaneous vaginal delivery), Single live , Anemia, , Periurethral laceration, delivered, current hospitalization, Family history of diabetes mellitus, High-risk in second trimester, Need for prophylactic vaccination and inoculation against influenza, Pain of round ligament during docusate calcium 240 Take 1 capsule by 60 capsule 1 03/13/2020 Active mg capsuleIndications: mouth once daily Adult BMI <19 kg/sq m, as needed for Multiparity, Anemia of Constipation. mother in , antepartum, 39 weeks gestation of , (spontaneous vaginal delivery), Single live , Anemia, , Periurethral laceration, delivered, current hospitalization, Family history of diabetes mellitus, High-risk in second trimester, Need for prophylactic vaccination and inoculation against influenza, Pain of round ligament during ferrous sulfate 325 mg Take 1 tablet by 60 tablet 2 03/13/2020 Active (65 mg iron) mouth 2 (two) tabletIndications: times daily. Adult BMI <19 kg/sq m, Multiparity, Anemia of mother in , antepartum, 39 weeks gestation of , (spontaneous vaginal delivery), Single live , Anemia, , Periurethral laceration, delivered, current hospitalization, Family history of diabetes mellitus, High-risk in second trimester, Need for prophylactic vaccination and inoculation against influenza, Pain of round ligament during ibuprofen 600 mg Take 1 tablet by 60 tablet 1 03/13/2020 Active tabletIndications: mouth every 6 Adult BMI <19 kg/sq m, (six) hours as Multiparity, Anemia of needed (Pain). mother in , Take with food or antepartum, 39 weeks milk. gestation of , (spontaneous vaginal delivery), Single live , Anemia, , Periurethral laceration, delivered, current hospitalization, Family history of diabetes mellitus, High-risk in second trimester, Need for prophylactic vaccination and inoculation against influenza, Pain of round ligament during vit Take 1 Packet by 30 Each 6 03/14/2020 Active 60-xhvm-xhetl-dha mouth daily. (SELECT-OB + DHA) 29 mg iron-1 mg -250 mg combo packIndications: 39 weeks gestation of documented as of this encounter (statuses as of 04/01/2020) Active Problems Problem Noted Date (spontaneous vaginal delivery) 03/12/2020 Single live 03/12/2020 Anemia, 03/12/2020 Periurethral laceration, delivered, current hospitaliz ation 03/12/2020 39 weeks gestation of 03/11/2020 Poor growth affecting management of mother in th ird trimester 03/11/2020 Anemia of mother in , antepartum 02/25/2020 Pain of round ligament during 12/25/2019 Adult BMI <19 kg/sq m 08/06/2019 Multiparity 08/06/2019 Family history of diabetes mellitus 08/06/2019 High-risk in second trimester 08/06/2019 Need for prophylactic vaccination and inoculation agai nst influenza 08/06/2019 documented as of this encounter (statuses as of 04/01/2020) Immunizations Name Administration Dates Next Due Influenza Virus Vaccine Quad .5 mL IM 6+ MO 08/06/2019 TDAP (ADACEL) VACCINE 12/25/2019 documented as of this encounter Social History Tobacco Use Types Packs/Day Years Used Date Never Smoker Smokeless Tobacco: Never Used Alcohol Use Drinks/Week oz/Week Comments Not Currently Sex Assigned at Date Recorded Not on file COVID-19 Exposure Response Date Recorded In the last month, have you been in contact with No / Unsure 03/11/2020 6:01 PM CDT someone who was confirmed or suspected to have Coronavirus / COVID-19? documented as of this encounter Last Filed Vital Signs Not on filedocumented in this encounter Plan of Treatment Health Maintenance Due Date Last Done Comments INFLUENZA VACCINE (#1) 2020 08/06/2019 HPV VACCINES (1 - 2-dose 07/27/2020 Postpon ed from 2009 series) ( or ) MENINGOCOCCAL B VACCINES [...] filedocumented in this encounter Visit Diagnoses Diagnosis HIV antibody positive - Primary documented in this encounter Insurance Payer Benefit Plan / Subscriber ID Effective Phone Address [facility] [id number] 2020-Prese [address] Medic aid HEALTH CHOICE - HEALTH CHOICE nt [id number] 1 MANAGED MEDICAID [place], [place]ID [phone] documented as of this encounter
--- OUTSIDE RECORDS SUMMARY | 2020-05-27 13:10 | XMS REPORT | Summary of Care ---
:[address] [facility] Address [address] [place] [address] Care Team Providers Name Role Phone Tess Salas Primary Care Provider Reason for Referral (Routine) Status Reason Specialty Diagnoses / Referred By Referred To Procedures Contact Contact New Request Infectious Disease Diagnoses HIV antibody positive Jaylen Gaviria Procedures CONSULT INFECTIOUS DISEASE MD Ruthie [address] [place] [id number] [place] [id number] Reason for Visit Reason Comments Results Encounter Details Date Type Department Care Team Description 04/01/2020 Telephone [facility] and Rowena Armando MD Results Clinics [address] [place] [phone] [place] [address] Allergies No Known Allergiesdocumented [...] Packet by 30 Each 6 03/14/2020 Active 26-pjca-kzzff-dha mouth daily. (SELECT-OB + DHA) 29 mg [...] ID Effective Phone Address T e [employer] [facility] [id number] 2020-Prese [address] Medic aid HEALTH CHOICE - HEALTH CHOICE nt [phone] 1 MANAGED MEDICAID [place] [phone] documented as of this encounter
--- OUTSIDE RECORDS SUMMARY | 2020-05-27 13:10 | XMS REPORT | Summary of Care ---
:2000 Author Organization [facility] Address [address] [place] [address] Care Team Providers Name Role Phone Tess Salas [employer] REPRESENTATIVE Primary Care Provider Reason for Visit Reason Comments Rx Concern/Question prenatabs not covered by ins Encounter Details Date Type Department Care Team Description 03/14/2020 Telephone [facility] RMP- Berta Jonas Rx Concern/Question ARI Schofield (prenatabs not covered [address] [place] [address] by ins) [place] [phone] Allergies No Known Allergiesdocumented as of this encounter (statuses as of 03/14/2020) Medications Medication Sig Dispensed Refills Start Date [...] Packet by 30 Each 6 03/14/2020 Active 74-dzdz-qqmxe-dha mouth daily. (SELECT-OB + DHA) 29 mg iron-1 mg -250 mg combo packIndications: 39 weeks gestation of documented as of this encounter (statuses as of 03/14/2020) Active Problems Problem Noted Date (spontaneous vaginal [...] as of this encounter (statuses as of 03/14/2020) Immunizations Name Administration Dates Next Due Influenza [...] Treatment Date Type Specialty Care Team Description 04/01/2020 Routine Visit [facility] Itzel Jonas, CNP [address] [place], [place] [address] [phone] Health Maintenance Due Date Last Done Comments [...] filedocumented in this encounter Visit Diagnoses Diagnosis 39 weeks gestation of - Primar y state, incidental documented in this encounter Insurance Payer Benefit Plan / Subscriber ID Effective Phone Address [facility] xxxxxxxxx 2020-K[address] Medic aid HEALTH CHOICE - HEALTH CHOICE nt [id number] 1 MANAGED MEDICAID [place], [place] [phone] documented as of this encounter
--- OUTSIDE RECORDS SUMMARY | 2020-05-27 13:10 | XMS REPORT | Summary of Care ---
:2000 Author Organization [facility] - [facility] Address [address] [place] [id number] Care Team Providers Name Role Phone Tess Salas Primary Care Provider Reason for Referral (Routine) Status Reason Specialty Diagnoses / Referred By Referred To Procedures Contact Contact New Request OB Satellites Diagnoses Adult BMI <19 kg/sq m Multiparity Anemia of mother in , antepartum 39 weeks gestation of (spontaneous vaginal delivery) Single live Anemia, Georgia Phillips FNP Periurethral lac eration, delivered, current hospitalization Family history of diabetes mellitus High-risk in second trimester Need for prophylactic vaccination and inoculation against influenza Pain of round ligament during [address] Procedures DISCHARGE FOLLOW-UP: ART PSYCHOTHERAP[place] [address] Reason for Visit Auth/Cert Status Reason Specialty Diagnoses / Referred By Contact Refe rred To Contact Procedures Obstetrics Diagnoses 39 weeks gestation [address] [address] Phone: Fax: Encounter Details Date Type Department Care Team Description 03/11/2020 - Hospital Encounter Mother Baby Unit Jaylen Gaviria (spontaneous 03/13/2020 (J7C) MD Ruthie vaginal delivery) [address] [place] [address] [id number] [place] [address] [id number] Allergies No Known Allergiesdocumented as of this encounter (statuses as of 03/13/2020) Medications Medication Sig Dispensed Refills Start Date End Date Status vitamin Take 1 tablet 100 tablet 3 03/13/2020 Active w/FA by mouth tabletIndications: daily. Adult BMI <19 kg/sq m, Multiparity, Anemia of mother in , antepartum, 39 weeks gestation of , (spontaneous vaginal delivery), Single live , Anemia, , Periurethral laceration, delivered, current hospitalization, Family history of diabetes mellitus, High-risk in second trimester, Need for prophylactic vaccination and inoculation against influenza, Pain of round ligament during docusate calcium Take 1 capsule 60 capsule 1 03/13/2020 Active 240 mg by mouth once capsuleIndications: daily as Adult BMI <19 kg/sq needed for m, Multiparity, Constipation. Anemia of mother in , antepartum, 39 weeks gestation of , (spontaneous vaginal delivery), Single live , Anemia, , Periurethral laceration, delivered, current hospitalization, Family history of diabetes mellitus, High-risk in second trimester, Need for prophylactic vaccination and inoculation against influenza, Pain of round ligament during ferrous sulfate 325 Take 1 tablet 60 tablet 2 03/13/2020 Active mg (65 mg iron) by mouth 2 tabletIndications: (two) times Adult BMI <19 kg/sq daily. m, Multiparity, Anemia of mother in , antepartum, 39 weeks gestation of , (spontaneous vaginal delivery), Single live , Anemia, , Periurethral laceration, delivered, current hospitalization, Family history of diabetes mellitus, High-risk in second trimester, Need for prophylactic vaccination and inoculation against influenza, Pain of round ligament during ibuprofen 600 mg Take 1 tablet 60 tablet 1 03/13/2020 Active tabletIndications: by mouth every Adult BMI <19 kg/sq 6 (six) hours m, Multiparity, as needed Anemia of mother in (Pain). Take , with food or antepartum, 39 milk. weeks gestation of , (spontaneous vaginal delivery), Single live , Anemia, , Periurethral laceration, delivered, current hospitalization, Family history of diabetes mellitus, High-risk in second trimester, Need for prophylactic vaccination and inoculation against influenza, Pain of round ligament during PNV 67-iron Take 1 capsule 30 capsule 11 08/27/2019 D iscontinued ps-folate no.1-dha by mouth 0 (VITAFOL ULTRA) 29 daily. mg iron- 1 mg-200 mg CapIndications: High-risk in first trimester Miscellaneous Use as 1 Each 0 01/07/2020 Disco ntinued Medical Supply directed 0 (BLOOD PRESSURE CUFF) MiscIndications: High-risk in third trimester ferrous sulfate 325 Take 1 tablet 60 tablet 3 02/25/202003/13 Discontinued mg (65 mg iron) by mouth 2 0 tabletIndications: (two) times Anemia of mother in daily. , antepartum ascorbic acid, Take 1 tablet 90 tablet 2 02/25/2020 Discontinued vitamin C, 500 mg by mouth 3 0 tabletIndications: (three) times Anemia of mother in daily. , antepartum documented as of this encounter (statuses as of 03/13/2020) Active Problems Problem Noted Date (spontaneous vaginal [...] vaccination and inoculation agai nst influenza 08/06/2019 Comments Yes documented as of this encounter (statuses as of 03/13/2020) Immunizations Name Administration Dates Next Due Influenza Virus Vaccine Quad .5 mL IM 6+ MO 08/06/2019 TDAP (ADACEL) VACCINE 12/25/2019 documented as of this encounter Social History Tobacco Use Types Packs/Day Years Used Date Never Smoker Smokeless Tobacco: Never Used Alcohol Use Drinks/Week oz/Week Comments Not Currently Comments Yes Sex Assigned at Date Recorded Not on [...] Sign Reading Time Taken Comments Blood Pressure 122/80 03/13/2020 8:17 AM CDT Pulse 69 03/13/2020 8:17 AM CDT Temperature 36.8 C (98.3 F) 03/13/2020 8:17 AM CDT Respiratory Rate 17 03/13/2020 8:17 AM CDT Oxygen Saturation 98% 03/13/2020 8:17 AM CDT Inhaled Oxygen Concentration - - Weight 50.3 kg (111 lb) 03/11/2020 7:00 PM CDT Height 162.6 cm (5' 4") 03/11/2020 7:00 PM CDT Body Mass Index 19.05 03/11/2020 7:00 PM CDT documented in this encounter Discharge Summaries Georgia Phillips FNP - 03/13/2020 7:29 AM CDT DISCHARGE SUMMARY - VAGINAL DELIVERY Date of Service: 03/13/2020 ADMIT DATE: 03/11/2020 DISCHARGE DATE: 03/13/2020 ATTENDING MD: Jaylen Gaviria MD ATTENDING MD AT DISCHARGE: Jaylen Gaviria MD CNM/DRAFTER ENGINEERING: SHIVANI De Luna PCP: Tess Salas REASON FOR ADMISSION Admit For: IOL at term gestation For: care for FINAL DIAGNOSIS: (the reason, after study, for admitting the patient to the hospital) S/P Vaginal Delivery SECONDARY DIAGNOSIS: (any diagnosis that, on this admission, required clinical evaluation, therapeutic treatment, diagnostic procedures, extended hospital stay, or additional nursing care/monitoring): Anemia Principal Problem: (spontaneous vaginal delivery) (03/12/2020) POA: Yes Assessment: Delivered Plan: Routine course Active Problems: Multiparity (08/06/2019) POA: Yes 39 weeks gestation of (03/11/2020) POA: Yes Poor growth affecting management of mother in third trimester (03/11/2020) POA: Yes Single live (03/12/2020) POA: Yes Assessment: 2880g with 8/9 Apgars Plan: Infant in care of pediatricians Anemia of mother in , antepartum (02/25/2020) POA: Yes Anemia, (03/12/2020) POA: Yes Assessment: Secondary to & delivery. Estimated blood loss 250 ml at delivery. Pt without sob, vertigo or palpitations. Lochia scant, good hemostasis maintained, & vital signs stable. Predelivery H&H: 9.6/29.6 Post delivery H&H: 8..8/26.8 Plan: RX PNV 1 tablet PO Q daily, Ferrous sulfate 325mg 1 po BID , take with Vit C. Increase iron rich foods, increase hydration. bleed precautions reviewed. Periurethral laceration, delivered, current hospitalization (03/12/2020) POA: No Assessment: no edema or hematoma. Plan: jammie care, use jammie bottle with/ warm water after each void , Ibuprofen for pain / inflammation COVID-19 SCREEN: Recent history of travel to a high-risk area: No Recent sick contacts before or during admission: No Contact with a proven COVID-19 case: No Symptoms of COVID-19, which include fever, dry cough, fatigue, difficulty breathing: No This patient is considered low risk for COVID-19 infection COVID -19 Screening test on arrival: negative PRINCIPAL PROCEDURE: Cephalic vaginal delivery ADDITIONAL PROCEDURES: No past surgical history on file. Episiotomy/laceration repair and EFM SIGNIFICANT LAB/X-RAYS: HCT (%) Date Value 03/12/2020 26.8 (L) HGB (g/dL) Date Value 03/12/2020 8.8 (L) 02/22/2020 9.6 (L) Rubella: immune Varicella: immune Type and Screen: AB and RH postive S: Patient has no complaints. Patient denies sob, vertigo, headache, blurred vision, epigastric pain orpalpitations. Patient reports voiding without difficulty with good urine output. Patient reports ambulating unassisted without difficulty. Tolerating diet, passing flatus. Breast/bottlefeeding. Happy with new baby.No evidence of depression. Patient desires discharge home today. Contraception: Undecided , review at PP visit. O: General: Alert and oriented. No apparent distress Affect appropriate Heart: regular rate and rhythm. Lungs: good inspiratory effort to inspections, lungs clear to auscultation bilaterally. Breast: softAbdomen: soft non-tender. Fundus: firm at umbilicus Perineum: B- periurethral laceration, intact, no edema, hematoma or abcess Lochia: scant rubra, no clots Extremities: no edema bilaterally. No calf tenderness BP: (100-116)/(58-72) Temp: [35.8 C (96.5 F)-36.9 C (98.4 F)] Temp source: Oral (03/13 0011) Pulse: [66-83] Resp: [17-18] SpO2: [98 %-100 %] Height: -- Weight: -- BMI (calculated): -- P: Routine instructions reviewed w/ pt. Precautions re: bleed/injury, depression, infection & DVT's reviewed. She was instructed to return to ER if Temp greater than 100.4F, headache unresolved with pain medications, visual disturbances including double orblurry vision, seeing spots, upper abdominal pain, or vaginal bleeding greater than 1 pad per hour. Pelvic rest 6 weeks, and no heavy lifting. DIET: Regular diet ACTIVITY: as tolerated, no strenuous activity and no heavy lifting DISCHARGE MEDICATIONS: Current Discharge Medication List START taking these medications Details docusate calcium (SURFAK) 240 mg Take 240 mg by mouth once daily as needed for Constipation. Qty: 60 capsule, Refills: 1 Start date: 03/13/2020 Associated Diagnoses: Adult BMI <19 kg/sq m; Multiparity; Anemia of mother in , antepartum; 39 weeks gestation of ; (spontaneous vaginal delivery); Single live ; Anemia, ; Periurethral laceration, delivered, current hospitalization; Family history of diabetes me llitus; High-risk in second trimester; Need for prophylactic vaccination and inoculation against influenza; Pain of round ligament during ibuprofen (IBU) 600 mg Take 600 mg by mouth every 6 (six) hours as needed (Pain). Take with food or milk. Qty: 60 tablet, Refills: 1 Start date: 03/13/2020 Associated Diagnoses: Adult BMI <19 kg/sq m; Multiparity; Anemia of mother in , antepartum; 39 weeks gestation of ; (spontaneous vaginal delivery); Single live ; Anemia, ; Periurethral laceration, delivered, current hospitalization; Family history of diabetes me llitus; High-risk in second trimester; Need for prophylactic vaccination and inoculation against influenza; Pain of round ligament during vitamin w/FA (PRENATABS RX) 1 tablet Take 1 tablet by mouth daily. Qty: 100 tablet, Refills: 3 Start date: 03/13/2020 Associated Diagnoses: Adult BMI <19 kg/sq m; Multiparity; Anemia of mother in , antepartum; 39 weeks gestation of ; (spontaneous vaginal delivery); Single live ; Anemia, ; Periurethral laceration, delivered, current hospitalization; Family history of diabetes me llitus; High-risk in second trimester; Need for prophylactic vaccination and inoculation against influenza; Pain of round ligament during CONTINUE these medications which have CHANGED Details ferrous sulfate 325 mg Take 325 mg by mouth 2 (two) times daily. Qty: 60 tablet, Refills: 2 Start date: 03/13/2020 Associated Diagnoses: Adult BMI <19 kg/sq m; Multiparity; Anemia of mother in , antepartum; 39 weeks gestation of ; (spontaneous vaginal delivery); Single live ; Anemia, ; Periurethral laceration, delivered, current hospitalization; Family history of diabetes me llitus; High-risk in second trimester; Need for prophylactic vaccination and inoculation against influenza; Pain of round ligament during STOP taking these medications ascorbic acid (vitamin C) (VITAMIN C) 500 mg Comments: Reason for Stopping: Miscellaneous Medical Supply (BLOOD PRESSURE CUFF) [facility] Comments: Reason for Stopping: PNV 67-iron ps-folate no.1-dha (VITAFOL ULTRA) 1 capsule Comments: Reason for Stopping: WOUND CARE: .Encouraged appropriate pericare DISCHARGE: Discharged: Home CONDITION AT TIME OF DISCHARGE: Stable FOLLOW-UP APPOINTMENT: With Tali ARENAS in 3 week(s) SHIVANI De Luna Associated attestation - Jaylen Gaviria MD - 03/13/2020 11:31 AM CDTS/P . Patient was evaluated by SHIVANI De Luna before discharge home. I personally participated inthe evaluation of the patient and agree with the plan as written. Please see Ms. Roseny's note for additional details.documented in this encounter Discharge Instructions Tess Infante RN - 03/13/2020Multidisciplinary Discharge Instructions (may include diet, dressing changes, activity limits, written materials given to patient: DIET: Eat a well balanced diet; drink 6-8 glasses of fluids daily; eat fruits and green, leafy vegetables. DAILY ACTIVITIES: 1. As much as you feel able to do. Rest when you are tired. 2. Limitations: Specify; No heavy lifting other than your baby for 4 weeks if you had surgery. TREATMENT AT HOME 1. Use a well-fitting bra to prevent breast engorgement 2. Resume intercourse as instructed by your physician. 3. Do not use douches or tampons for four weeks. 4. To help prevent urinary tract infection; after each urination and bowel movement, wipe and dry from front to back and change jammie pad. 5. Follow discharge instructions regarding baby care. 6. Follow family planning instructions. IMMEDIATE TREATMENT - Call Clinic or Your Physician 1. Increase in pain and tenderness of uterus. 2. Increased vaginal bleeding (bright red blood which soaks 2 pads in 1 hour or pass large clots). 3. Foul smelling vaginal discharge. 4. Burning in the tube that empties the urine from the bladder. 5. Painful breast engorgement or cracked nipples. 6. Pain, discharges, or gaping incision. 7. Temperature greater than 38.0C or 100.4F 8. Pain and tenderness of calf or thigh muscles. 9. No bowel movements in 4 days. For Problems or Questions Call: OB Clinic Family Planning [phone] or Emergency: Go to the closest emergency room or call 911 AttachmentsThe following attachments cannot be sent through Care Everywhere. , Breast Care After ([place])Breast, ([place])Breastfeed, How to ([place]), Holding Your Baby While ([place])Breastmilk, The Benefits of ([place]) Depression, Understanding ([place])documented in this encounter Progress Notes Georgia Phillips FNP - 03/12/2020 7:44 AM CDT PROGRESS NOTE Subjective: Patient is a 20 year old , S/P , post day 0. She complains of cramps. Patient denies sob, vertigo, or palpitations. Patient reports voiding without difficulty with good urine output. Patient reports ambulating unassisted without difficulty. Tolerating diet, passing flatus. Breast/bottlefeeding. No evidence of depression. Changes since previous day: Delivered Objective: Vital Signs: BP: (104-135)/(45-94) Temp: [36.7 C (98 F)-36.9 C (98.4 F)] Temp source: Oral (03/12 0400) Pulse: [65-116] Resp: [8-18] SpO2: [96 %-100 %] Height: [162.6 cm (5' 4")] Weight: [50.3 kg (111 lb)] BMI (calculated): [19.05] Physical Exam: General: No apparent distress Happy with new baby. Affect appropriate Heart: regular rate and rhythm. S1, S2 present. No murmur/ rubs/gallops Lungs: good inspiratory effort to inspections, lungs clear to auscultation bilaterally. No wheeze/stridor/ crackles bilaterally. Breast: soft Abdomen: soft non-tender Fundus: firm at umbilicus Perineum: B- periurethral laceration, intact, no edema, hematoma or abcess Lochia: scant rubra, no clots Extremities: no clubbing, cyanosis, or edema bilaterally. No calf tenderness/ NEG Cordell's Current Medications: Current Facility-Administered Medications Medication Dose Route Frequency Last Rate Last Dose acetaminophen (TYLENOL) tablet 650 mg 650 mg Oral Q6HPRN benzocaine-menthol (DERMOPLAST) 20-0.5 % topical spray Topical PRN diphenhydrAMINE (BENADRYL) tablet 25 mg 25 mg Oral Q6HPRN diphenhydrAMINE-0.9 % sod.chlr (BENADRYL) 25 mg/50 mL piggyback 25 mg 25 mg IV Piggyback Q6HPRN docusate calcium (SURFAK) capsule 240 mg 240 mg Oral QDAILYPRN ibuprofen (IBU) tablet 600 mg 600 mg Oral Q6HPRN 600 mg at 03/12/20 0627 LR 1000 mL + oxytocin 20 units IV Solution IV Infusion CONTINUOUS magnesium hydroxide (MILK OF MAGNESIA) 400 mg/5 mL suspension 30 mL 30 mL Oral QDAILYPRN ondansetron (ZOFRAN (PF)) injection 4 mg 4 mg Slow IV Push Q8HPRN vitamin w/FA (PRENATABS RX) tablet 1 tablet 1 tablet Oral DAILY rho(D) immune globulin (RHOGAM) syringe 300 mcg 300 mcg Intramuscular ONCE simethicone (GAS RELIEF (SIMETHICONE)) chewable tablet 160 mg 160 mg Oral PC+HSPRN LR 1000 mL + oxytocin 20 units IV Solution IV Infusion ONCE Labs: CBC BMP MAGNESIUM WBC (10*3/L) Date Value 03/12/2020 13.37 (H) No results found for: NA No results found for: MG PLT (10*3/L) Date Value 03/12/2020 277 No results found for: K HGB (g/dL) Date Value 03/12/2020 8.8 (L) No results found for: CA HCT (%) Date Value 03/12/2020 26.8 (L) No results found for: CL TYPE & RH No results found for: BUN ABO & RH (no units) Date Value 03/11/2020 AB POSITIVE No results found for: CREAT Type & Screen Rubella Varicella ABO & RH (no units) Date Value 03/11/2020 AB POSITIVE Rubella screen IgG (no units) Date Value 08/06/2019 Positive No results found for: VZVG No results found for: TSABINT Hep B HIV Syphilis No results found for: HBS No results found for: HIV No results found for: SYPG Group B Strep Chlamydia No results found for: CGBS C. trachomatis Nucleic Acid (no units) Date Value 02/22/2020 Negative Assessment/Plan: COVID-19 screening at admission is negative Denies travel to known Covid-19 affected areas. Denies close contact with someone suspected of having the Covid-19. Denies any s/s of Covid-19. Reviewed with patient plan of care if she should learn of exposure to Covid-19 or develop s/s of Covid-19. This patient is considered low risk for COVID-19 infection Principal Problem: (spontaneous vaginal delivery) (03/12/2020) POA: Yes Assessment: Delivered Plan: Routine course Active Problems: Multiparity (08/06/2019) POA: Yes 39 weeks gestation of (03/11/2020) POA: Yes Poor growth affecting management of mother in third trimester (03/11/2020) POA: Yes Single live (03/12/2020) POA: Yes Assessment: 2880g with 8/9 Apgars Plan: in care of pediatricians Anemia of mother in , antepartum (02/25/2020) POA: Yes Anemia, (03/12/2020) POA: Yes Assessment: Secondary to & delivery. Estimated blood loss 250 ml at delivery. Pt without sob, vertigo or palpitations. Lochia scant, good hemostasis maintained, & vital signs stable. Predelivery H&H: 9.6/29.6 Post delivery H&H: 8..8/26.8 Plan: RX PNV 1 tablet PO Q daily, Ferrous sulfate 325mg 1 po BID , take with Vit C. Increase iron rich foods, increase hydration. bleed precautions reviewed. Periurethral laceration, delivered, current hospitalization (03/12/2020) POA: No Assessment: no edema or hematoma. Plan: jammie care, use jammie bottle with/ warm water after each void , Ibuprofen for pain / inflammation ASSESSMENT 20 y/o S/p on 03/11/2020 at 11:16PM complicated by none. Patient is recovering well: hemodynamically stable, good UOP, pain well-controlled, vitals within normal limits. PLAN 1. Review: - Admitted for: IOL at term gestation - Estimated blood loss: 250 ml - Laceration: B- periurethral laceration - Vaginal delivery Complications: None - Predelivery H/H: 9.6/29.6 - Postdelivery H/H:8.8/26.8 2. care: - Diet: Regular diet - Fluid: Encourage oral intake - Activity: Encourage ambulation - Pain: [place] and Ibuprofen - DVT prophylaxis: Encourage ambulation 3. Discharge Planning: - Contraception: Nothing - Vaccines: up to date - Follow Up: follow-up in 3 weeks at clinic - Anticipate discharge tomorrow 4. Baby Status - at bedside SHIVANI De Luna documented in this encounter Plan of Treatment Date Type Specialty Care Team Description 04/01/2020 Routine Visit OB Satellites Itzel Jonas, CNP [address], [place] [address] [phone] Name Type Priority Associated Diagnoses Date/Ti me HIV 1/2 AG-AB WITH REFLEX LAB [facility] 7:50 PM CDT HIV 1/2 AB SUPPLEMENTAL LAB RENE 02/26 7:50 PM CDT TESTING HIV-1 RNA, QUALITATIVE, TMA LAB [facility]ENE 03/11/2020 7:50 PM CDT Name Type Priority Associated Diagnoses Order S chedule HIV 1/2 AG-AB WITH REFLEX LAB RENE ON CE for 1 Occurrences starting 2019 until 0, 1 completed HIV 1/2 AB SUPPLEMENTAL LAB RENE ONCE for 1 Occurrences TESTING starting 2019 until 0, 1 completed HIV-1 RNA, QUALITATIVE, LAB Routine ONCE for 1 Occurrences TMA starting 2019 until 0 Health Maintenance Due Date Last Done Comments [...] Procedure Name Priority Date/Time Associated Comments Diagnosis CBC WITH DIFFERENTIAL Routine 03/12/2020 3:06 Re sults for this AM CDT procedure are i n the results section. CBC WITH DIFF Routine 03/12/2020 3:06 Results fo r this AM CDT procedure are i n the results section. VENOUS CORD GAS [facility] 03/11/2020 11:24 Results for this PM CDT procedure are i n the results section. ARTERIAL CORD GAS [facility] 03/11/2020 11:24 Result s for this PM CDT procedure are i n the results section. GALV ONLY - SYPHILIS [facility] 03/11/2020 7:50 Res ults for this IGG/IGM PM CDT procedure are i n the results section. HEPATITIS B SURFACE [facility] 03/11/2020 7:50 Resu lts for this ANTIGEN PM CDT procedure are i n the results section. RHO (D) IMMUNE Routine 03/11/2020 7:40 Results f or this GLOBULIN PM CDT procedure are i n the results section. HB ABO GROUPING [facility] 03/11/2020 7:40 Results for this PM CDT procedure are i n the results section. COVID-19 (ID NOW [facility] 03/11/2020 6:22 Results for this RAPID TESTING) PM CDT procedure are in the results section. documented in this encounter Results CBC WITH DIFFERENTIAL (03/12/2020 3:06 AM CDT) Pathologist Sig nature WBC 13.37 (H) 4.30 - 11.10 [facility] 10*3/L SERVICES RBC 3.03 (L) 3.93 - 5.25 [facility] 10*6/L SERVICES HGB 8.8 (L) 11.6 - 15.0 [facility] g/dL SERVICES HCT 26.8 (L) 35.7 - 45.2 % [facility] MCV 88.4 80.6 - 95.5 fL [facility] MCH 29.0 25.9 - 32.8 pg [facility] MCHC 32.8 31.6 - 35.1 [facility] g/dL SERVICES RDW-SD 43.3 39.0 - 49.9 fL [facility] RDW-CV 13.5 12.0 - 15.5 % [facility] PLT 277 166 - 358 [facility] 10*3/L SERVICES MPV 10.3 9.5 - 12.9 fL [facility] NRBC/100 WBC 0.0 0.0 - 10.0 /100 [facility] WBCs SERVICES NRBC x10^3 <0.01 10*3/L [facility] GRAN MAT (NEUT) % 75.5 % [facility] IMM GRAN % 0.60 % [facility] LYMPH % 18.2 % [facility] MONO % 5.3 % [facility] EOS % 0.2 % [facility] BASO % 0.2 % [facility] GRAN MAT x10^3(ANC) 10.09 (H) 1.88 - 7.09 [facility] 10*3/uL SERVICES IMM GRAN x10^3 0.08 (H) 0.00 - 0.06 [facility] 10*3/uL SERVICES LYMPH x10^3 2.43 1.32 - 3.29 [facility] 10*3/uL SERVICES MONO x10^3 0.71 0.33 - 0.92 [facility] 10*3/uL SERVICES EOS x10^3 0.03 0.03 - 0.39 [facility] 10*3/uL SERVICES BASO x10^3 0.03 0.01 - 0.07 [facility] 10*3/uL SERVICES Specimen Blood - ARM, LEFT Performing Organization Address City/State/Zipcode Phone Number [facility] CLIA: [id number], [address] [place] [address] [address] [facility] ARTERIAL CORD GAS (03/11/2020 11:24 PM CDT) Pathologist Sig nature BASE EXCESS, CORD -3.8 mEq/L [facility] AC PH, CORD (BEAKER) 7.28 7.18 - 7.38 [facility] PC02, CORD 51 32 - 66 mmHg [facility] PO2, CORD 22 10 - 30 mmHg [facility] BICARBONATE, CORD 24 17 - 27 mEq/L [facility] Specimen Blood - CORD Performing Organization Address City/[facility]/Zipcode Phone Number [facility] CLIA: [id number], [address] [place] [address] [address] [facility] VENOUS CORD GAS (03/11/2020 11:24 PM CDT) VENOUS BASE -5.6 mEq/L [facility] EXCESS, CORD SERVICES VENOUS PH, CORD 7.19 (L) 7.25 - 7.45 [facility] VENOUS PC02, CORD 65 (H) 27 - 49 mmHg [facility] VENOUS PO2, CORD 12 (L) 17 - 41 mmHg [facility] VENOUS 24Comment: 12 - 29 mEq/L [facility] BICARBONATE, CORD QUES SERVICES Specimen Blood - CORD Performing Organization Address City/[facility]/Zipcode Phone Number [facility] CLIA: [id number], [address] [place] [phone] [facility] GALV ONLY - SYPHILIS IGG/IGM (03/11/2020 7:50 PM CDT) Pathologist Sig nature Syphilis IgG/IgM Non-reactive Non-reactive [facility] Specimen Blood - VENOUS Narrative Performed At [facility] Non-reactive - No serologic evidence of T. pallidum infection. Cannot exclude incubating or early syphilis . Submit a second specimen in 2-4 weeks if syphilis is clinically suspected. Equivocal - Further testing to follow. Reactive - Further testing to follow. Performing Organization Address [facility] Phone Number [facility] CLIA: [id number], [address] [place] [phone] [facility] Hepatitis B Surface Antigen (03/11/2020 7:50 PM CDT) Pathologist [facility] HBsAg Negative Negative [facility] HBsAg 0.07 [facility] Semi-Quantitative SERVICES Specimen Blood - VENOUS Performing Organization Address [facility] Phone Number [facility] CLIA: [id number], [address] [place] [phone] [facility] RHO (D) IMMUNE GLOBULIN (03/11/2020 7:40 PM CDT) Pathologist Sig nature RHIG CANDIDATE? No- see comment LAB Comment: Patient is not a candidate for RhIg- Patient is Rh Pos itive. Performed at [facility] Services - GAL Blood Bank [address] [place] [address] Toll Free: [phone] CLIA No. [id number] Specimen Blood - VENOUS Performing Organization Address [facility]/Zipcode Phone Number [facility] Type and Screen - ONCE RENE (03/11/2020 7:40 PM CDT) Pathologist Sig nature ABO & RH AB POSITIVE LAB Comment: Performed at [facility] Services - [facility] Blood Bank [address] [place], [place] [address] Toll Free: [phone] CLIA No. [id number] IAT Negative LAB Comment: Performed at [facility] Services - [facility] Blood Bank [address] [place] [address], [place], [place] [address] Toll Free: [phone] CLIA No. [id number] Specimen Blood - VENOUS Performing Organization Address City/State/Zipcode Phone Number [facility] COVID-19 (ID NOW RAPID TESTING) (03/11/2020 6:22 PM CDT) SARS-CoV-2 Rapid ID Not Detected Not Detected [facility] NOW SERVICES Specimen Swab - NASOPHARYNGEAL SWAB Narrative Performed At ID NOW COVID-19 Assay is an isothermal nucleic acid [facility] amplification test intended for the qualitative detect ion of nucleic acid from SARS-CoV-2 viral RNA in nasopharynge al ([employer]) specimens. It is used under Emergency Use Authori zation (EUA) by FDA. The limit of detection (LOD) of the assa y is 125 Genome Equivalents/mL. A positive result is indicative of the presence of SARS-CoV-2 RNA. Clinical correlation with patient hi story and other diagnostic information is necessary to deter mine patient infection status. A negative (Not Detected) result does not preclude SARS-CoV-2 infection. In patients with clinical sympto ms and other tests that are consistent with SARS-CoV-2 infect ion, negative results should be treated as presumptive nega tive and a new specimen should be tested with alternative P CR molecular test. Invalid: Please collect a new specimen for repeat blair ent testing if clinically indicated. Performing Organization Address City/State/Zipcode Phone Number [facility] CLIA: [id number], [address] [place], [place] [address] [facility] documented in this encounter Visit Diagnoses Diagnosis (spontaneous vaginal delivery) - Carmen bustamante Normal delivery Adult BMI <19 kg/sq m Body Mass Index less than 19, adult Multiparity Anemia of mother in , antepartu m Anemia, antepartum 39 weeks gestation of state, incidental Single live Outcome of delivery, single liveborn Anemia, Periurethral laceration, delivered, curr ent hospitalization Other specified trauma to perineum and v ulva, with delivery Family history of diabetes mellitus High-risk in second trimester Need for prophylactic vaccination and in oculation against influenza Pain of round ligament during Poor growth affecting management o f mother in third trimester documented in this encounter Administered Medications Medication Order MAR Action Action Date Dose Rate Site ascorbic acid (vitamin C) Given 03/13/2020 11:01 AM CDT 500 mg (VITAMIN C) tablet 500 mg 500 mg, Oral, BID, First dose on Tue03/12/20 at 0800, Until Discontinued, Routine Given 03/12/2020 8:11 PM CDT 500 mg Given 03/12/2020 9:28 AM CDT 500 mg ferrous sulfate tablet 325 mg Given 03/13/2020 11:01 AM CDT 325 mg 325 mg, Oral, BID, First dose on Tue03/12/20 at 0800, Until Discontinued, Routine Given 03/12/2020 8:11 PM CDT 325 mg Given 03/12/2020 9:28 AM CDT 325 mg ibuprofen (IBU) tablet 600 mg Given 03/13/2020 11:01 AM CDT 600 mg 600 mg, Oral, Q6HPRN, Starting Tue03/12/20 at 0224, Until Discontinued, Routine, Pain (scale 4-6) Given 03/13/2020 1:27 AM CDT 600 mg Given 03/12/2020 5:08 PM CDT 600 mg vitamin w/FA (PRENATABS RX) Given 03/13/2020 11:01 AM C DT 1 tablet tablet 1 tablet 1 tablet, Oral, DAILY, First dose on Tue03/12/20 at 0900, Until Discontinued, Routine Given 03/12/2020 9:28 AM CDT 1 tablet Medication Order MAR Action Action Date Dose Rate Site D5W-LR IV infusion 1,000 mL New Bag 03/11/2020 8:03 PM CDT 1,000 mL 125 mL/hr at 125 mL/hr, IV Infusion, CONTINUOUS, Starting Tue03/11/20 at 1945, Until Tue03/12/20 at 0225, Routine LR 1000 mL + oxytocin Rate Change 03/11/2020 10:30 PM 6 keith-unit s/min 18 mL/hr 20 units IV Solution CDT at 6-120 mL/hr, IV Infusion, TITRATE, Starting Tue03/11/20 at 1935, Until 03/12/20 at 0225, RENE Rate Change 03/11/2020 10:00 PM CDT 8 keith-units/min 24 mL/hr Rate Change 03/11/2020 9:00 PM CDT 6 keith-units/min 18 mL/hr documented in this encounter Additional Health Concerns Infection Onset Date Last Indicated Resolved Time COVID-19 Rule Out 03/11/2020 03/11/2020 03/11/2020 7: 12 PM CDT documented as of this encounter Insurance Payer Benefit Plan / Subscriber ID Effective Phone Address T ype Group Dates [facility] xxxxxxxxx 2020-Prese [address] Medic aid HEALTH CHOICE - HEALTH CHO[place] nt [id number] 1 MANAGED MEDICAID [place], [place] MEDICAID [phone] documented as of this encounter
--- OUTSIDE RECORDS SUMMARY | 2020-05-27 13:11 | XMS REPORT | Summary of Care ---
:2000 Author Organization [facility] Address [address] [place] [address] Care Team Providers Name Role Phone Tess Salas Primary Care Provider Reason for Referral (Routine) Status Reason Specialty Diagnoses / Referred By Referred To Procedures Contact Contact New Request Infectious Disease Diagnoses HIV antibody positive Jaylen Gaviria Procedures CONSULT INFECTIOUS DISEASE MD Ruthie [address] [place] [id number] [place] [address] Reason for Visit Reason Comments Results Encounter Details Date Type Department Care Team Description 04/01/2020 Telephone [facility] and Rowena Armando MD Results Clinics [address] [place] [id number] [place] [address] Allergies No Known Allergiesdocumented [...] Packet by 30 Each 6 03/14/2020 Active 17-jing-rwrpl-dha mouth daily. (SELECT-OB + DHA) 29 mg iron-1 mg -250 mg combo packIndications: 39 weeks gestation of documented as of this encounter (statuses as of 04/01/2020) Active Problems Problem Noted Date Routine follow-up 04/01/2020 Anemia, 03/12/2020 39 weeks gestation of 03/11/2020 Anemia of mother in , antepartum 02/25/2020 Pain of round ligament during 12/25/2019 Adult BMI <19 kg/sq m 08/06/2019 documented as of this encounter (statuses as of 04/01/2020) Resolved Problems Problem Noted Date Resolved Date (spontaneous vaginal delivery) 03/12/202004/01 Single live 03/12/2020 04/01/2020 Periurethral laceration, delivered, current hospitalization 03/12/2020 04/01/2020 Poor growth affecting management of mother in third 04/01/2020 trimester Multiparity 08/06/2019 04/01/2020 Family history of diabetes mellitus 08/06/201911/2019 High-risk in second trimester 08/06/2019 04/01/2020 Need for prophylactic vaccination and inoculation against 04/01/2020 influenza documented as of this encounter (statuses as [...] Signs Not on filedocumented in this encounter Miscellaneous Notes Addendum Note - Jeanne Godoy RN - 04/01/2020 11:42 AM CDT Addended by: JEANNE GODOY RN on: 04/01/2020 11:42 AM Modules accepted: Orders Telephone Encounter - Jeanne Godoy RN - 04/01/2020 11:34 AM CDTCalled patient, advised HIV is reactive, however confirmatory is negative. Per provider patient can come in for retesting. Patient verbalized understanding and patient scheduled for labs. JEANNE GODOY RN 04/01/2020 11:40 AM documented in this encounter Plan of Treatment Date Type Specialty Care Team Description 04/02/2020 Motion Study Analyst Visit OB Satellites Lab, Ernesto-Rmchp 04/22/2020 Office Visit OB Satellites Guevara Jonas harmony [facility] [address] [place], [place] [address] [phone] Name Type Priority Associated Diagnoses Order S chedule HIV 1/2 AG-AB WITH LAB Routine HIV antibody positive Expected: 04/02/2020, REFLEX Expires: 2020 Health Maintenance Due Date Last Done Comments [...] ID Effective Phone Address T e Group [facility] [id number] 2020-Prese [address] Medic aid HEALTH CHOICE - HEALTH CHOICE nt [id number] 1 MANAGED MEDICAID [place], [place] MEDICAID [phone] documented as of this encounter
--- OUTSIDE RECORDS SUMMARY | 2020-05-27 13:11 | XMS REPORT | Summary of Care ---
:2000 Author Organization [facility] Address [address] [place] [address] Care Team Providers Name Role Phone Tess Salas Primary Care Provider Reason for Visit Reason Comments Care (Routine) Status Reason Specialty Diagnoses / Referred By Referred To Procedures Contact Contact New Request OB Satellites Diagnoses Adult BMI <19 kg/sq m Multiparity Anemia of mother in , antepartum 39 weeks gestation of (spontaneous vaginal delivery) Single live Anemia, Georgia Phillips, MERCURY PURIFIER Periurethral lac eration, delivered, current hospitalization Family history of diabetes mellitus High-risk in second trimester Need for prophylactic vaccination and inoculation against influenza Pain of round ligament during [address] Procedures DISCHARGE FOLLOW-UP: [facility] [place] [address] Encounter Details Date Type Department Care Team Description 04/01/2020 Routine [facility] RMCHP- Marian Jonas Visit Craig ARI Alfaro follow-up (Primary [address] Dx) [facility] [address] [place], [place] [phone] Allergies No Known Allergiesdocumented as of [...] Packet by 30 Each 6 03/14/2020 Active 27-npio-cqjxd-dha mouth daily. (SELECT-OB + DHA) 29 mg [...] Sign Reading Time Taken Comments Blood Pressure 114/71 04/01/2020 9:30 AM CDT Pulse 71 04/01/2020 9:30 AM CDT Temperature 36.9 C (98.5 F) 04/01/2020 9:30 AM CDT Respiratory Rate 16 04/01/2020 9:30 AM CDT Oxygen Saturation - - Inhaled Oxygen Concentration - - Weight 46.4 kg (102 lb 4 oz) 04/01/2020 9:30 AM CDT Height - - Body Mass Index 17.55 03/11/2020 7:00 PM CDT documented in this encounter Progress Notes Berta Jonas, WHCNP - 04/01/2020 9:15 AM CDT Chief complaint: Chief Complaint Patient presents with Care HPI The patient is here for a routine PP visit. She has no complaints today. She states that she is formula feeding her , is bonding well, and coping well with less sleep. She reports that she has no pain, small lochia, and denies all s/s of PP depression. She wants IUD for PP contraception. Histories OB History Para Term AB Living 2 2 2 2 SAB TAB Ectopic Multiple Live Births 0 2 # Outcome Date GA Lbr César/2nd Weight Sex Delivery Anes PTL Lv 2 Term 03/11/20 39w1d 6 lb 5.6 oz (2.88 kg) F NORMAL SPONT EPI [place] 1 Term 11/30/18 40w0d 6 lb 5 [...] Financial resource strain: Not on file Food insecurity Worry: Not on file Inability: Not on file Transportation needs Medical: Not on file Non-medical: Not on file Tobacco Use Smoking status: Never Smoker Smokeless tobacco: Never Used Substance and Sexual Activity Alcohol use: Not Currently Drug use: Never Sexual activity: Yes Partners: Male control/protection: None Comment: last sexual intercourse 08/01/2019 Lifestyle Physical activity Days per week: Not on file Minutes per session: Not on file Stress: Not on file Relationships Social connections Talks on phone: Not on file Gets together: Not on file Attends cheondoism service: Not on file Active member of club or organization: Not on file Attends meetings of clubs or organizations: Not on file Relationship status: Not on file Intimate partner violence Fear of current or ex partner: Not on file Emotionally abused: Not on file Physically abused: Not on file Forced sexual activity: Not on file Other Topics Concern Not on file Social History Narrative [place] preference is Sabianism. Patient lives with family. Patient has 1 cat. Social History Substance and Sexual Activity Sexual Activity Yes Partners: Male control/protection: None Comment: last sexual intercourse 08/01/2019 Labs No new labs and Admission on 03/11/2020, Discharged on 03/13/2020 Component Date Value SARS-CoV-2 Rapid ID NOW 03/11/2020 Not Detected HBsAg 03/11/2020 Negative HBsAg Semi-Quantitative 03/11/2020 0.07 Syphilis IgG/IgM 03/11/2020 Non-reactive ABO & RH 03/11/2020 AB POSITIVE IAT 03/11/2020 Negative VENOUS BASE EXCESS, CORD 03/11/2020 -5.6 VENOUS PH, CORD 03/11/2020 7.19* VENOUS PC02, CORD 03/11/2020 65* VENOUS PO2, CORD 03/11/2020 12* VENOUS BICARBONATE, CORD 03/11/2020 24 BASE EXCESS, CORD 03/11/2020 -3.8 AC PH, CORD (BEAKER) 03/11/2020 7.28 PC02, CORD 03/11/2020 51 PO2, CORD 03/11/2020 22 BICARBONATE, CORD 03/11/2020 24 HIV 1/2 Ag-Ab with Reflex 03/11/2020 Reactive* HIV Semi-quantitative 03/11/2020 5.49 HIV Supplemental Confirm* 03/11/2020 Presumptive Negative/Indeterminate HIV-1 Ab Confirmation 03/11/2020 Negative HIV-2 Ab Confirmation 03/11/2020 Negative RHIG CANDIDATE? 03/11/2020 No- see comment WBC 03/12/2020 13.37* RBC 03/12/2020 3.03* HGB 03/12/2020 8.8* HCT 03/12/2020 26.8* MCV 03/12/2020 88.4 MCH 03/12/2020 29.0 MCHC 03/12/2020 32.8 RDW-SD 03/12/2020 43.3 RDW-CV 03/12/2020 13.5 PLT 03/12/2020 277 MPV 03/12/2020 10.3 NRBC/100 WBC 03/12/2020 0.0 NRBC x10^3 03/12/2020 <0.01 GRAN MAT (NEUT) % 03/12/2020 75.5 IMM GRAN % 03/12/2020 0.60 LYMPH % 03/12/2020 18.2 MONO % 03/12/2020 5.3 EOS % 03/12/2020 0.2 BASO % 03/12/2020 0.2 GRAN MAT x10^3(ANC) 03/12/2020 10.09* IMM GRAN x10^3 03/12/2020 0.08* LYMPH x10^3 03/12/2020 2.43 MONO x10^3 03/12/2020 0.71 EOS x10^3 03/12/2020 0.03 BASO x10^3 03/12/2020 0.03 HIV-1 RNA QUALITATIVE TMA 03/11/2020 Not Detected Routine Visit on 03/04/2020 Component Date Value POCT PH U 03/04/2020 . POCT U LEUK EST 03/04/2020 . POCT U NIT 03/04/2020 . POCT U PROT 03/04/2020 Trace POCT U GLU 03/04/2020 Neg POCT U KETONE 03/04/2020 . POCT U BLD 03/04/2020 . Routine Visit on 02/22/2020 Component Date Value [...] Date Value SARS-CoV-2 PCR 01/18/2020 Not Detected Radiology No new radiology. Allergies Chaparrita has No Known Allergies. Medications Chaparrita has a current medication list which includes the following prescription(s): vit 99-xklc-yvvwj-dha, docusate calcium, ferrous sulfate, ibuprofen, and vitamin w/fa. Review of Systems Constitutional: Negative. HENT: Negative. Eyes: Negative. Respiratory: Negative. Breasts: Negative. Cardiovascular: Negative. Gastrointestinal: Negative. Genitourinary: Positive for vaginal bleeding. Musculoskeletal: Negative. Skin: Negative. Neurological: Negative. Psychiatric/Behavioral: Negative. Endocrine: Endocrine negative BP 114/71 (BP Location: Right arm, Patient Position: Sitting, BP CUFF SIZE: Adult Small) | Pulse 71 | Temp 36.9 C (98.5 F) (Oral) | Resp 16 | Wt 102 lb 4 oz (46.4 kg) | LMP 07/18/2019 (LMP Unknown) | BMI 17.55 kg/m Pregravid BMI: 16.81 Physical Exam Vitals reviewed. Constitutional: She is oriented to person, place, and time. She appears well- developed, well-nourished and well-groomed. Cardiovascular: Regular rate and rhythm. No peripheral edema present. Pulmonary/Chest: Normal inspiratory effort. Abdominal: Abdomen is soft. Normal appearance. No mass palpated. No tenderness present. There is no hepatosplenomegaly, splenomegaly or hepatomegaly. There is no rigidity and no guarding. No hernia palpated or inspected. Fundus firm Neuro/Psychiatric: She has a normal mood and affect. She is oriented to person, place, and time. Skin: Skin normal. Genitourinary Comments: [employer] HE[employer] student present during exam Breast: Right breast exhibits no mass, no nipple discharge and no tenderness. Left breast exhibits no mass, no nipple discharge and no tenderness. Breasts are symmetrical. Normal left breast and normalright breast Rectal: Rectal exam with normal anal tone. No mass, no external hemorrhoid and no internal hemorrhoid palpated or inspected. normal rectum External genitalia: Normal external genitalia appropriate for age. Normal hair distribution. No labial lesion. Vagina:No lesion inspected. Normal estrogen effect. Normal support. Vaginal discharge found. No lesions in the vagina. Lochia WNL, small rubra Uterus: Uterus is normal size, normal contour, normal position and non-tender. Involution WNL Normal uterus Assessment/Plan Return to clinic in 3 weeks. for WWE and IUD Insertion Routine follow-up (primary encounter diagnosis) Comment: routine Plan: as needed mgmt This visit did not involve counseling and coordination that comprised more than 50% of the visit time. ARI Escamilla 04/01/2020 10:02 AM Carol Plascencia, RN - 04/01/2020 9:15 AM CDTPt in clinic today for 3 wk pp visit. 1) Delivery method vaginal 2) Patient delivered on 03/11/2020 at [place] 3) Patient is currently bottlefeeding. 4) Desired BCM: undecided, possible IUD 5) Patient denies pp depression Lochia: none C/O: none documented in this encounter Plan of Treatment Date Type Specialty Care Team Description 04/22/2020 Office Visit OB Satellites Guevara Jonas WHCNP [address] [place], [place] [address] [phone] Health Maintenance Due Date Last Done Comments [...] filedocumented in this encounter Visit Diagnoses Diagnosis Routine follow-up - Primary documented in this encounter Insurance Payer Benefit Plan / Subscriber ID Effective Phone Address T ype Group Dates [id number] 2020-Kristel MORGAN Medic aid HEALTH CHOICE - HEALTH CHOICE nt [id number] 1 MANAGED MEDICAID [place], [place] MEDICAID [phone] documented as of this encounter"
--- OUTSIDE RECORDS SUMMARY | 2020-05-27 13:11 | XMS REPORT | Summary of Care ---
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 Periurethral lac eration, delivered, current hospitalization Family history of diabetes mellitus High-risk in second trimester Need for prophylactic vaccination and inoculation against influenza Pain of round ligament during [address] Procedures DISCHARGE FOLLOW-UP: [facility] [place] [address] Encounter Details Date Type Department Care Team Description 04/01/2020 Routine [facility] RMCHP- Marian Jonas Visit Turpin ARI Alfrao follow-up (Primary [address] [place] [address] Dx) [facility] [address] [place], [place] [phone] Allergies No Known Allergiesdocumented as of [...] Packet by 30 Each 6 03/14/2020 Active 89-lnhk-yufbl-dha mouth daily. (SELECT-OB + DHA) 29 mg [...] file Gets together: Not on file Attends catholic service: Not on file Active member of [...] Concern Not on file Social History Narrative Protestant preference is Gnosticism. Patient lives with family. Patient has 1 [...] list which includes the following prescription(s): vit 23-bcfk-lldfr-dha, docusate calcium, ferrous sulfate, ibuprofen, and vitamin [...] vaginal 2) Patient delivered on 03/11/2020 at [place] 3) Patient is currently bottlefeeding. 4) Desired BCM: undecided, possible IUD 5) Patient denies pp depression Lochia: none C/O: none documented in this encounter Plan of Treatment Date Type Specialty Care Team Description 04/22/2020 Office Visit OB Satellites Guevara Jonas WHCNP [address] [place], [place] [address] [phone] Health Maintenance Due Date Last Done Comments [...] Effective Phone Address T ype Group Dates [facility] [id number] 2020-Kristel MORGAN Medic aid HEALTH CHOICE - HEALTH CHOICE nt [id number] 1 MANAGED MEDICAID [place], [place]ID [phone] documented as of this encounter"
--- OUTSIDE RECORDS SUMMARY | 2020-05-27 13:11 | XMS REPORT | Summary of Care ---
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 Periurethral lac eration, delivered, current hospitalization Family history of diabetes mellitus High-risk in second trimester Need for prophylactic vaccination and inoculation against influenza Pain of round ligament during [address] Procedures DISCHARGE FOLLOW-UP: NUCLEAR WASTE [place] [address] Encounter Details Date Type Department Care Team Description 04/01/2020 Routine [facility]- Marian Jonas Visit [place] ARI Alfaro follow-up (Primary [address] [address] Dx) [facility] [place] [address] [place], [place] [phone] [address] Allergies No Known Allergiesdocumented as of this encounter (statuses as of 04/18/2020) Medications Medication Sig Dispensed Refills Start Date [...] Packet by 30 Each 6 03/14/2020 Active 52-bsil-ahhsr-dha mouth daily. (SELECT-OB + DHA) 29 mg iron-1 mg -250 mg combo packIndications: 39 weeks gestation of documented as of this encounter (statuses as of 04/18/2020) Active Problems Problem Noted Date Routine follow-up 04/01/2020 Anemia, 03/12/2020 39 weeks gestation of 03/11/2020 Anemia of mother in , antepartum 02/25/2020 Pain of round ligament during 12/25/2019 Adult BMI <19 kg/sq m 08/06/2019 documented as of this encounter (statuses as of 04/18/2020) Resolved Problems Problem Noted Date Resolved Date [...] as of this encounter (statuses as of 04/18/2020) Immunizations Name Administration Dates Next Due Influenza [...] file Gets together: Not on file Attends sabianism service: Not on file Active member of [...] Concern Not on file Social History Narrative Cheondoism preference is Buddhism. Patient lives with family. Patient has 1 [...] list which includes the following prescription(s): vit 58-tvcg-ylwqx-dha, docusate calcium, ferrous sulfate, ibuprofen, and vitamin [...] vaginal 2) Patient delivered on 03/11/2020 at [place] 3) Patient is currently bottlefeeding. 4) Desired BCM: undecided, possible IUD 5) Patient denies pp depression Lochia: none C/O: none documented in this encounter Plan of Treatment Date Type Specialty Care Team Description 04/22/2020 Office Visit OB Satellites Guevara Jonas [facility] [address], [place] [address] [phone] Health Maintenance Due Date Last Done Comments [...] Effective Phone Address T ype Group Dates [facility] [id number] 2020-Kristel MORGAN Medic aid HEALTH CHOICE - HE[place] nt [id number] 1 MANAGED MEDICAID [place], [place] MEDICAID [phone] documented as of this encounter"
--- OUTSIDE RECORDS SUMMARY | 2020-05-27 13:12 | XMS REPORT | Summary of Care ---
:2000 Author Organization [facility] Address [address] [place] [address] Care Team Providers Name Role Phone Tess Salas INTERNET SECURITY SPECIALIST Primary Care Provider Reason for Visit Reason Comments Well Woman Exam INTRAUTERINE DEVICE Encounter Details Date Type Department Care Team Description 04/22/2020 Office Visit [facility]- Berta Jonas control counseling (Primary Dx); ARI Schofield Anemia, ; [address] Well woman exam; Street SUSHMA A Screen for STD (sexually transmitted dis ease) [place], [place] [phone] Allergies No Known Allergiesdocumented as of this encounter (statuses as of 04/22/2020) Medications Medication Sig Dispensed Refills Start Date [...] Packet by 30 Each 6 03/14/2020 Active 88-ozvw-ilcky-dha mouth daily. (SELECT-OB + DHA) 29 mg iron-1 mg -250 mg combo packIndications: 39 weeks gestation of documented as of this encounter (statuses as of 04/22/2020) Active Problems Problem Noted Date Other general counseling and advice for contraceptive management 04/22/2020 Well woman exam 04/22/2020 Anemia, 03/12/2020 Adult BMI <19 kg/sq m 08/06/2019 documented as of this encounter (statuses as of 04/22/2020) Resolved Problems Problem Noted Date Resolved Date Routine follow-up 04/01/2020 04/22/2020 (spontaneous vaginal delivery) 03/12/202004/01 Single live 03/12/2020 04/01/2020 Periurethral laceration, delivered, current hospitalization 03/12/2020 04/01/2020 39 weeks gestation of 03/11/2020 04/22/20 20 Poor growth affecting management of mother in third 04/01/2020 trimester Anemia of mother in , antepartum 02/25/2020 04/22/2020 Pain of round ligament during 12/25/2019 04/22/2020 Multiparity 08/06/2019 04/01/2020 Family history of diabetes mellitus 08/06/201911/2019 High-risk in second trimester 08/06/2019 04/01/2020 Need for prophylactic vaccination and inoculation against 04/01/2020 influenza documented as of this encounter (statuses as of 04/22/2020) Immunizations Name Administration Dates Next Due Influenza [...] been in contact with No / Unsure 04/22/2020 9:58 AM CDT someone who was confirmed or suspected to have Coronavirus / COVID-19? documented as of this encounter Last Filed Vital Signs Vital Sign Reading Time Taken Comments Blood Pressure 115/83 04/22/2020 9:58 AM CDT Pulse 72 04/22/2020 9:58 AM CDT Temperature 36.1 C (97 F) 04/22/2020 9:58 AM CDT Respiratory Rate 16 04/22/2020 9:58 AM CDT Oxygen Saturation - - Inhaled Oxygen Concentration - - Weight 45.9 kg (101 lb 4 oz) 04/22/2020 9:58 AM CDT Height 162.6 cm (5' 4") 04/22/2020 9:58 AM CDT Body Mass Index 17.38 04/22/2020 9:58 AM CDT documented in this encounter Progress Notes Berta Jonas, ARI - 04/22/2020 9:30 AM CDT Chief complaint: Chief Complaint Patient presents with Well Woman 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 She is not . She wears cotton underwear. It is unknown whether or not her partner has an STD. She uses condoms for contraception. Patient reports that prior to today's visit, her form of control was none. After this visit, patient's form of control will be female condom. Her menstrual history has been regular. Patient reports sexually active. HPI: the patient is here today for WWE and contraceptive management. She reports she desires STI testing today, reporting no new sexual partners. She states she desires IUD for control but reports intercourse on last night with condoms but a week ago without. Pt (denies) current or past physical, sexual or emotional abuse. Histories OB History Para Term AB Living [...] Aunt No Significant Medical Problems Maternal Uncle Diabetes Paternal Aunt No Significant Medical Problems Paternal Uncle Colon Cancer Maternal Grandmother No Significant Medical Problems Maternal Grandfather Diabetes Paternal Grandmother Diabetes Paternal Grandfather Family Status Relation Name Status Mo Alive Fa Alive Sis Alive Bro Alive MAunt Alive MUnc Alive PAunt Alive PUnc Alive MGMo MGFa PGMo Alive PGFa Alive History reviewed. No pertinent surgical history. Social History Socioeconomic History Marital status: Single [...] file Gets together: Not on file Attends lutheran service: Not on file Active member of [...] Concern Not on file Social History Narrative Religion preference is Mandaen. Patient lives with family. Patient has 1 cat. Social History Substance and Sexual Activity Sexual Activity Yes Partners: Male control/protection: None Comment: last sexual intercourse 08/01/2019 Labs Labs are pending. and No visits with results within 1 Month(s) from this visit. Latest known visit with results is: Admission on 03/11/2020, Discharged on 03/13/2020 Component [...] HIV-1 RNA QUALITATIVE TMA 03/11/2020 Not Detected Radiology No new radiology. Allergies Chaparrita has No Known Allergies. Medications Chaparrita has a current medication list which includes the following prescription(s): vit 50-vxyj-mcdtc-dha, docusate calcium, ferrous sulfate, ibuprofen, and vitamin w/fa. Review of Systems Constitutional: Negative. HENT: Negative. Eyes: Negative. Respiratory: Negative. Breasts: Negative. Cardiovascular: Negative. Gastrointestinal: Negative. Genitourinary: Negative. Musculoskeletal: Negative. Skin: Negative. Neurological: Negative. Psychiatric/Behavioral: Negative. Endocrine: Endocrine negative BP 115/83 (BP Location: Right arm, Patient Position: Sitting, BP CUFF SIZE: Adult Medium) | Pulse 72 | Temp 36.1 C (97 F) (Oral) | Resp 16 | Ht 5' 4" (1.626 m) | Wt 101 lb 4 oz (45.9 kg) | LMP 07/18/2019 (Exact Date) | BMI 17.38 kg/m Pregravid BMI: Could not be calculated Physical Exam Vitals reviewed. Constitutional: She is oriented to person, place, and time. She appears well- developed. Her body habitus is normal. Neck: No tenderness and no mass. No thyroid nodules and no thyromegaly palpated. No neck adenopathy. Cardiovascular: Regular rate and rhythm. No gallop, no friction rub and no murmur auscultated. No peripheral edema present. Pulmonary/Chest: Breath sounds clear to auscultation. Normal inspiratory effort. Abdominal: Abdomen is soft. No mass palpated. No tenderness present. There is no hepatosplenomegaly,splenomegaly or hepatomegaly. There is no rigidity. No hernia palpated or inspected. Neuro/Psychiatric: She has a normal mood and affect. She is oriented to person, place, and time. Skin: No lesion, no rash and no ulceration present. Lymphadenopathy: No neck adenopathy present. No axillary adenopathy present. No inguinal adenopathy present. Breast: Right breast exhibits no mass, no nipple discharge and no tenderness. Left breast exhibits no mass, no nipple discharge and no tenderness. Breasts are symmetrical. Normal left breast and normalright breast Rectal: Rectal exam with normal anal tone. No mass, no external hemorrhoid and no internal hemorrhoid palpated or inspected. External genitalia: Normal external genitalia appropriate for age. Normal hair distribution. No labial lesion. Urethral meatus: Normal urethral meatus size, location and no lesion. No prolapse present. Normal urethral meatus Urethra: Normal urethra. No urethral tenderness, no mass and no urethral scarring palpated. Bladder: Bladder has no fullness, no mass palpated and no tenderness. Normal bladder Vagina:Normal vagina. No lesion inspected. Normal estrogen effect. Normal support. No abnormal vaginal discharge found. No lesions in the vagina. Cervix: Normal cervix. No lesion. No tenderness and no discharge present. Uterus: Uterus is normal size, normal contour, normal position and non-tender. Normal uterus Adnexa: Right adnexa without tenderness, ovary enlargement or mass. Left adnexa without tenderness, ovary enlargement or mass. Normal left adnexa and normal right adnexa Anus/perineum: Normal perineum and normal anus. Assessment/Plan Return to clinic in 1 weeks. for IUD insertion Return to clinic in 1 year for WWE or sooner as needed Rubella/VZV: immune BMI: 17 Td: 2020 Pap Smear: 2019 Gardasil: pending Mammogram/Guaiac/Colonoscopy:na control counseling (primary encounter diagnosis) Comment: as ordered Plan: POCT TEST Anemia, Comment: continue iron, PNV and iron-rich foods Plan: CBC WITH DIFF Well woman exam Comment: routine Plan: GC & CHLAMYDIA AMPLIFIED ASSAY Screen for STD (sexually transmitted disease) Comment: as ordered Plan: HIV 1/2 AG-AB WITH REFLEX This visit did not involve counseling and coordination that comprised more than 50% of the visit time. ARI Escamilla 04/22/2020 10:19 AM Cynthia Gaston LVN - 04/22/2020 9:30 AM CDT20 year old presented to the clinic for WWE. 1) Previous BCM:condom 2) Desired BCM:IUD-Moira 3) LMP:07/18/2019 4) Last Coy:04/21/2020 5) Last Pap:08/06/2019 Results:negative 6) Tdap in last 10 years? 12/25/2019 HPV?no, not interested 7) C/O none 8) Patient denies history of physical, emotional, or sexual abuse. Patient states she currently feels safe at home. documented in this encounter Plan of Treatment Name Type Priority Associated Diagnoses Order S chedule GC & CHLAMYDIA AMPLIFIED LAB Routine Well woman exam Ordered: 04/22/2020 ASSAY HIV 1/2 AG-AB WITH REFLEX LAB Routine Screen for STD (sexually Ordered: 04/22/2020 transmitted disease) CBC WITH DIFF LAB Routine Anemia, Ordered: 04/22/2020 Health Maintenance Due Date Last Done Comments [...] encounter Procedures Procedure Name Priority Date/Time Associated Diagnosis Comme nts POCT TEST Routine 04/22/2020 10:01 AM control Results for this CDT counseling procedure are i n the results section. documented in this encounter Results POCT TEST (04/22/2020 10:01 AM CDT) Pathologist Sig nature POCT PREG Negative On board controls acceptable Yes with C Line POCT PREG LOT # POCT PREG TEST DATE Specimen Urine - URINE, CLEAN CATCH documented in this encounter Visit Diagnoses Diagnosis control counseling - Primary General counseling for initiation of oth er contraceptive measures Anemia, Well woman exam Routine general medical examination at a health care facility Screen for STD (sexually transmitted dis ease) Screening examination for venereal disea se documented in this encounter Insurance Payer Benefit Plan / Subscriber ID Effective Phone Address T e Group [facility] [id number] 2020-Prese [address] Medic aid HEALTH CHOICE - HEALTH CHOICE nt [id number] 1 MANAGED MEDICAID [place], [place] MEDICAID [phone] documented as of this encounter
--- OUTSIDE RECORDS SUMMARY | 2020-05-27 13:12 | XMS REPORT | Summary of Care ---
:2000 Author Organization [facility] Address [address] [place] [address] Care Team Providers Name Role Phone Tess Salas FARMWORKER ANIMAL Primary Care Provider Reason for Visit Reason Comments Well Woman Exam INTRAUTERINE DEVICE Encounter Details Date Type Department Care Team Description 04/22/2020 Office Visit [facility] RMCHP- Berta Jonas control counseling (Primary Dx); ARI Schofield Anemia, ; [address] [place] [address] Well woman exam; Street [address] Screen for STD (sexually transmitted dis ease) [place], [place] [phone] Allergies No Known [...] Packet by 30 Each 6 03/14/2020 Active 67-jysr-xdoop-dha mouth daily. 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 Patient lives with family. Patient has 1 [...] list which includes the following prescription(s): vit 64-pfjx-dccwy-dha, docusate calcium, ferrous sulfate, ibuprofen, and vitamin [...] 2) Desired BCM:IUD-Moira 3) LMP:07/18/2019 4) Last [place]:04/21/2020 5) Last Pap:08/06/2019 Results:negative 6) Tdap in [...] ID Effective Phone Address T e Group [facility] [id number] 2020-Prese [address] Medic aid HEALTH CHOICE - HEALTH CHOICE nt [id number] 1 MANAGED MEDICAID [place], [place] MEDICAID [phone] documented as of this encounter
--- OUTSIDE RECORDS SUMMARY | 2020-05-27 13:12 | XMS REPORT | Summary of Care ---
:2000 Author Organization [facility] Address [address] [place] [address] Care Team Providers Name Role Phone Tess Salas CARE MGR Primary Care Provider Reason for Visit Reason Comments Well Woman Exam INTRAUTERINE DEVICE Encounter Details Date Type Department Care Team Description 04/22/[address] [facility] RMCHP- Berta Jonas control counseling (Primary Dx); ARI Schofield Anemia, ; [address] [place] [address] Well woman exam; Street SUSHMA A Screen for STD (sexually transmitted dis ease) [place], [place] [phone] Allergies No Known [...] Packet by 30 Each 6 03/14/2020 Active 17-mngm-orimu-dha mouth daily. 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 Patient lives with family. Patient has 1 [...] list which includes the following prescription(s): vit 86-mnal-lsgsh-dha, docusate calcium, ferrous sulfate, ibuprofen, and vitamin [...] 2) Desired BCM:IUD-Moira 3) LMP:07/18/2019 4) Last [place]:04/21/2020 5) Last Pap:08/06/2019 Results:negative 6) Tdap in last 10 years? 12/25/2019 HPV?no, not interested 7) C/O none 8) Patient denies history of physical, emotional, or sexual abuse. Patient states she currently feels safe at home. documented in this encounter Plan of Treatment Date Type Specialty Care Team Description 05/01/2020 Office Visit OB Satellites Guevara Jonas [facility]CNP [address] [place], [place] [address] [phone] Name Type Priority Associated Diagnoses Date/Ti me GC & CHLAMYDIA LAB Routine Well woman exam 04/22/2020 10:41 AM CDT AMPLIFIED ASSAY HIV 1/2 AG-AB WITH LAB Routine Screen for STD (sexual ly 04/22/2020 10:41 AM CDT REFLEX transmitted disease) CBC WITH DIFF LAB Routine Anemia, 04/22/20 10:41 AM CDT Health Maintenance Due Date Last Done Comments [...] Subscriber ID Effective Phone Address T e [facility] [id number] 2020-Prese [address] Medic aid HEALTH CHOICE - HEALTH CHOICE nt [id number] 1 MANAGED MEDICAID [place], [place] MEDICAID [id number] documented as of this encounter
--- NOTE | 2020-05-27 14:25 | EDPHYS ---
Physician Documentation [facility] Name: Chaparrita Duggan Age: 20 yrs Sex: Female : 2000 Arrival Date: 05/27/2020 Time: 13:09 Bed 7 Private MD: ED Physician Aamir An HPI: 05/27 14:15 This 20 yrs old Female presents to ER via Ambulatory with complaints of Eye jmm Problem. 14:20 Onset: The symptoms/episode began/occurred gradually, 2 day(s) ago. Duration: the jmm symptoms are continuous. Aggravated by nothing. Alleviated by nothing. Associated signs and symptoms: Pertinent negatives: ear ache, runny nose. This is a 20 year old female with no chronic medical conditions that presents to the ED with complaints of left eye irritation. Patient admits to drainage. Denies fever. Denies injury. Denies contact use. . 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 - Social history:: Smoking status: Patient denies any tobacco usage or history of. ROS: 14:20 Constitutional: Negative for fever, chills, and weight loss. jmm 14:20 Cardiovascular: Negative for chest pain, palpitations, and edema, Respiratory: Negative for shortness of breath, cough, wheezing, and pleuritic chest pain. 14:20 Eyes: Positive for itching, matting. 14:20 All other systems are negative. Exam: 14:20 Constitutional: This is a well developed, well nourished patient who is awake, alert, jmm and in no acute distress. Head/Face: atraumatic. 14:20 ENT: Moist Mucus Membranes Neck: Trachea midline, Supple Chest/axilla: Normal chest wall appearance and motion. Cardiovascular: Regular rate and rhythm. No edema appreciated Respiratory: Normal respirations, no respiratory distress appreciated Abdomen/GI: Non distended, soft Back: Normal ROM Skin: General appearance color normal MS/ Extremity: Moves all extremities, no obvious deformities appreciated, no edema noted to the lower extremities Neuro: Awake and alert, normal gait Psych: Behavior is normal, Mood is normal, Patient is cooperative and pleasant 14:20 Eyes: Conjunctiva: injected, in the left eye. Vital Signs: 13:24 BP 114 / 75; Pulse 80; Resp 16 S; Temp 97.6(TE); Pulse Ox 100% on R/A; Weight 47.63 kg ca1 (R); Height 5 ft. 4 in. (162.56 cm) (R); 13:24 Body Mass Index 18.02 (47.63 kg, 162.56 cm) ca1 MDM: 14:05 Patient medically screened. [facility] 14:22 Data reviewed: vital signs, nurses notes. Counseling: I had a detailed discussion with tori the patient and/or guardian regarding: the historical points, exam findings, and any diagnostic results supporting the discharge/admit diagnosis, the need for outpatient follow up, to return to the emergency department if symptoms worsen or persist or if there are any questions or concerns that arise at home. Administered Medications: No medications were administered Disposition: 16:06 Co-signature as Attending Physician, Aamir An MD I agree with the assessment and [facility] plan of care. Disposition: 05/27/20 14:24 Discharged to Home. Impression: Other acute conjunctivitis. - Condition is Stable. - Discharge Instructions: Bacterial Conjunctivitis, Viral Conjunctivitis. - Prescriptions for Erythromycin 5 mg/gram (0.5 %) Ophthalmic Ointment - apply 1 ribbon by OPHTHALMIC route every 8 hours; 1 tube. - Medication Reconciliation Form, Thank You Letter, Antibiotic Education, Prescription Opioid Use, Work release form form. - Follow up: Private Physician; When: 2 - 3 days; Reason: Recheck today's complaints, Continuance of care, Re-evaluation by your physician. Signatures: Aamir An MD MD cha Mickail, Joel, PA PA [facility] Oxana Olivares, ESTELLE RN aa5 Charlene Mott RN RN tw2 Eugenia Summers RN RN ca1 Corrections: (The following items were deleted from the chart) 14:28 14:24 05/27/2020 14:24 Discharged to Home. Impression: Other acute conjunctivitis. tw2 Condition is Stable. Forms are Medication Reconciliation Form, Thank You Letter, Antibiotic Education, Prescription Opioid Use. Follow up: Private Physician; When: 2 - 3 days; Reason: Recheck today's complaints, Continuance of care, Re-evaluation by your physician. tori 14:32 14:28 05/27/2020 14:24 Discharged to Home. Impression: Other acute conjunctivitis. aa5 Condition is Stable. Discharge Instructions: Bacterial Conjunctivitis, Viral Conjunctivitis. Prescriptions for Erythromycin 5 mg/gram (0.5 %) Ophthalmic Ointment - apply 1 ribbon by OPHTHALMIC route every 8 hours; 1 tube. and Forms are Medication Reconciliation Form, Thank You Letter, Antibiotic Education, Prescription Opioid Use. Follow up: Private Physician; When: 2 - 3 days; Reason: Recheck today's complaints, Continuance of care, Re-evaluation by your physician. tw2
--- NOTE | 2020-05-27 14:29 | ER ---
Nurse's Notes [facility] Name: Chaparrita Duggan Age: 20 yrs Sex: Female : 2000 Arrival Date: 05/27/2020 Time: 13:09 Bed 7 Private MD: Diagnosis: Other acute conjunctivitis Presentation: 05/27 13:24 Chief complaint: Patient states: [place] eye on L eye started Tuesday. C/O pain and ca1 itchiness on L eye. Coronavirus screen: Client denies travel out of the [place] in the last 14 days. At this time, the client does not indicate any symptoms associated with coronavirus-19. Ebola Screen: Patient negative for fever greater than or equal to 101.5 degrees Fahrenheit, and additional compatible Ebola Virus Disease symptoms Patient denies exposure to infectious person. Patient denies travel to an Ebola-affected area in the 21 days before illness onset. No symptoms or risks identified at this time. Initial Sepsis Screen: Does the patient meet any 2 criteria? No. Patient's initial sepsis screen is negative. Does the patient have a suspected source of infection? No. Patient's initial sepsis screen is negative. Risk Assessment: Do you want to hurt yourself or someone else? Patient reports no desire to harm self or others. Onset of symptoms was May 27, 2020. 13:24 Method Of Arrival: Ambulatory ca1 13:24 Acuity: HONG 5 ca1 LINUX ADMIN: 13:26 LMP 05/14/2020 ca1 Historical: - Allergies: 13:26 No Known Allergies; ca1 - Home Meds: 13:26 None [Active]; ca1 - PMHx: 13:26 None; ca1 - PSHx: 13:26 None; ca1 - Immunization history:: Adult Immunizations up to date. - Social history:: Smoking status: Patient denies any tobacco usage or history of. Screenin:02 Abuse screen: Denies threats or abuse. Nutritional screening: No deficits noted. tw2 Tuberculosis screening: No symptoms or risk factors identified. Fall Risk None identified. Assessment: 13:50 General: Appears in no apparent distress. slender, well groomed, Behavior is calm, tw2 cooperative, appropriate for age. Pain: Denies pain. Neuro: Level of Consciousness is awake, alert, obeys commands, Oriented to person, place, time, situation. Cardiovascular: Patient's skin is warm and dry. Respiratory: Airway is patent Respiratory effort is even, unlabored, Respiratory pattern is regular, symmetrical. EENT: Reports pain in left eye. Musculoskeletal: Range of motion: intact in all extremities. 14:28 Reassessment: Patient appears in no apparent distress at this time. No changes from tw2 previously documented assessment. Patient and/or family updated on plan of care and expected duration. Pain level reassessed. Patient is alert, oriented x 3, equal unlabored respirations, skin warm/dry/pink. Vital Signs: 13:24 BP 114 / 75; Pulse 80; Resp 16 S; Temp 97.6(TE); Pulse Ox 100% on R/A; Weight 47.63 kg ca1 (R); Height 5 ft. 4 in. (162.56 cm) (R); 13:24 Body Mass Index 18.02 (47.63 kg, 162.56 cm) ca1 ED Course: 13:09 Patient arrived in ED. mr 13:26 Triage completed. ca1 13:26 Arm band placed on right wrist. ca1 13:49 Jason Pulido PA is PHCP. mainor 13:49 Aamir An MD is Attending Physician. [facility] 13:50 Bed in low position. Call light in reach. Pulse ox on. NIBP on. tw2 13:56 Nilson Dodson RN is Primary Nurse. jl7 14:25 No provider procedures requiring assistance completed. Patient did not have IV access tw2 during this emergency room visit. Administered Medications: No medications were administered Outcome: 14:24 Discharge ordered by MD. [facility] 14:28 Discharged to home ambulatory. tw2 14:28 Condition: stable 14:28 Discharge instructions given to patient, Instructed on discharge instructions, follow up and referral plans. medication usage, Demonstrated understanding of instructions, follow-up care, medications, Prescriptions given X 1. 14:28 Patient left the ED. tw2 Signatures: Jason Pulido PA PA mainor Reny Montes, [place], RN RN aa5 Charlene Mott RN RN tw2 Nilson Dodson RN RN jl7 Eugenia Summers RN RN ca1 Corrections: (The following items were deleted from the chart) 14:32 14:32 Patient left the ED. aa5 aa5
[2020-05-27 14:36] VITALS: BP 114/75; TEMP 97.6; O2SAT 100
== END 2020-05-27 14:32 | disposition home or self-care (01) ==
LOC: ER 13:05
DX: H10.32 Unspecified acute conjunctivitis, left eye (principal)
CPT/HCPCS: 99283

== ENCOUNTER 2021-02-22 21:38 | Emergency (ER) | payer OTHER ==
--- OUTSIDE RECORDS SUMMARY | 2021-02-22 21:43 | XMS REPORT | Continuity of Care Document ---
:2000 Author Organization [facility] t Address [address] [place] [address] Care Team Providers Name Role Phone Enoc Rea Attending Clinician Doctor Unassigned, Name Attending Clinician Unavailable Vladimir Dorman DO Attending Clinician Lab, Fam Pob I Attending Clinician Unavailable Problems This patient has no known problems. Allergies, Adverse Reactions, Alerts This patient has no known allergies or adverse reactions. Medications This patient has no known medications. Procedures This patient has no known procedures. Encounters Start End Encounter Admission Attending Care Care Encounter Source Date/Time Date/Time Type Type Clinicians Facility Department ID 2021-02-03 2021-02-03 Telephone MIYA Jonas [id number] 00:00:00 00:00:00 Berta C SENIOR GL ACCOUNTANT [id number] REGIONAL [id number] MATERNAL [id number] & CHILD 107 [facility] 2021-02-02 2021-02-02 Initial Pritesh [facility] [id number] 13:20:08 14:35:38 Berta C SENIOR GL ACCOUNTANT [id number] Visit REGIONAL [id number] MATERNAL [id number] & CHILD 107 [facility] 2021-02-02 2021-02-02 Orders Doctor SOLARES [id number] 00:00:00 00:00:00 Only UnassignedJUANY [id number] [facility] [id number] 2020-11-18 2020-11-18 Patient Dandy [facility] [id number] 00:00:00 00:00:00 Outreach Rowdy PRIMARY [id number] [facility] [id number] PAVILLION [id number] 2020-07-18 2020-07-18 Laboratory Lab, [facility] [id number] 13:45:57 14:03:32 Only Fam Pob [facility] [id number] [place] [id number] Professiker [id number] nal 0[address] 2020-04-22 2020-04-22 Office Pritesh [facility] [id number] 09:34:53 10:40:34 Visit Berta Stubbs SENIOR GL ACCOUNTANT [id number] [facility] [id number] MATERNAL [id number] & CHILD [address] [place] [address] [facility] [place] Results This patient has no known results.
--- NOTE | 2021-02-23 02:51 | ER ---
Nurse's Notes [facility] Name: Chaparrita Duggan Age: 21 yrs Sex: Female : 2000 Arrival Date: 02/22/2021 Time: 21:43 Bed 15 Private MD: Diagnosis: Viral Syndrome Presentation: 02/22 21:47 Chief complaint: Patient states: C/O cough, congestion, chills, loss of smell since ad5 Tuesday. Taking Nyquil with no relief of s/s. Est gestation 10 weeks. Resp even/unlabored. Skin pwd. Coronavirus screen: Client denies travel out of the [place] in the last 14 days. Client presents with at least one sign or symptom that may indicate coronavirus-19. Standard/surgical mask placed on the client. Ebola Screen: No symptoms or risks identified at this time. Initial Sepsis Screen: Does the patient meet any 2 criteria? HR > 90 bpm. Does the patient have a suspected source of infection? No. Patient's initial sepsis screen is negative. Risk Assessment: Do you want to hurt yourself or someone else? Patient reports no desire to harm self or others. Onset of symptoms was February 20, 2021. 21:47 Method Of Arrival: Ambulatory ad5 21:47 Acuity: HONG 4 ad5 Triage Assessment: 21:52 General: Appears in no apparent distress. Behavior is calm, cooperative, appropriate ad5 for age. Pain: Complains of pain in facial/sinus pain. 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 - Social history:: Smoking status: unknown. Screenin/28 00:19 Abuse screen: Denies threats or abuse. Nutritional screening: No deficits noted. bb Tuberculosis screening: No symptoms or risk factors identified. Fall Risk None identified. Assessment: 00:19 General: Appears in no apparent distress. slender, Behavior is calm, cooperative. Pain: bb Complains of pain in neck and shoulders. Neuro: Level of Consciousness is awake, alert, obeys commands, Oriented to person, place, time, situation. Cardiovascular: Capillary refill < 3 seconds Patient's skin is warm and dry. Respiratory: Reports cough that is persistent Airway is patent Respiratory effort is unlabored, Respiratory pattern is regular. GI: No signs and/or symptoms were reported involving the gastrointestinal system. : Reports she is 10 weeks . Derm: Skin is pink, warm \T\ dry. Musculoskeletal: Circulation, motion, and sensation intact. 02:00 Reassessment: Patient and/or family updated on plan of care and expected duration. Pain ea level reassessed. Patient is alert, oriented x 3, equal unlabored respirations, skin warm/dry/pink. 03:17 Reassessment: Patient and/or family updated on plan of care and expected duration. Pain ea level reassessed. Patient is alert, oriented x 3, equal unlabored respirations, skin warm/dry/pink. Discharge instruction given to patient verbalized the understanding of instruction pt left ED ambulatory tolerating well. Vital Signs: 02/22 21:47 BP 107 / 69; Pulse 113; Resp 18 S; Temp 99.3; Pulse Ox 100% on R/A; Weight 44.45 kg; ad5 Height 5 ft. 4 in. (162.56 cm); 02/23 03:00 BP 112 / 68; Pulse 78; Resp 18; Temp 98.7; Pulse Ox 99% ; ea 02/22 21:47 Body Mass Index 16.82 (44.45 kg, 162.56 cm) ad5 ED Course: 02/22 21:43 Patient arrived in ED. bp1 21:51 Triage completed. ad5 21:52 Arm band placed on left wrist. ad5 02/23 00:06 Avinash Gomez RN is Primary Nurse. rr5 00:14 Parker Colbert MD is Attending Physician. mh7 00:19 Patient has correct armband on for positive identification. Bed in low position. Call bb light in reach. 00:21 Primary Nurse role handed off by Avinash Gomez RN bb 00:21 Haylee Oliva RN is Primary Nurse. bb 03:17 No provider procedures requiring assistance completed. Patient did not have IV access ea during this emergency room visit. Administered Medications: 01:29 Drug: Tylenol 1000 mg Route: PO; ea 03:19 Follow up: Response: No adverse reaction ea Outcome: 02:51 Discharge ordered by . 7 03:17 Discharged to home ambulatory. ea 03:17 Condition: stable 03:17 Discharge instructions given to patient, Instructed on discharge instructions, follow up and referral plans. Demonstrated understanding of instructions, follow-up care. 03:19 Patient left the ED. ea Signatures: Haylee Oliva RN RN Joyce Hester RN RN Avinash Copeland RN RN rr5 Gisela Alaniz Maurice, MD MD 7 Leo Suarez ad5 Corrections: (The following items were deleted from the chart) 02/22 22:50 21:47 Acuity: HONG 3 ad5 ad5
--- NOTE | 2021-02-23 02:51 | EDPHYS ---
Physician Documentation [facility] Name: Chaparrita Duggan Age: 21 yrs Sex: Female : 2000 Arrival Date: 02/22/2021 Time: 21:43 Bed 15 Private MD: ED Physician Parker Colbert HPI: 02/23 01:00 This 21 yrs old Female presents to ER via Ambulatory with complaints of mh7 Cough, Runny Nose. 01:00 The patient or guardian reports cough, that is intermittent, described as mild, with no mh7 sputum, runny nose. Onset: The symptoms/episode began/occurred 2 day(s) ago. Severity of symptoms: At their worst the symptoms were mild, yesterday, in the emergency department the symptoms are unchanged. Modifying factors: The symptoms are alleviated by nothing, the symptoms are aggravated by nothing. Associated signs and symptoms: Pertinent negatives: chest pain, diarrhea, ear ache, fever, nausea, rhinorrhea, sore throat, vomiting. RN PAIN MANAGEMENT: 00:21 Verified bb Historical: - Allergies: 02/22 21:51 No Known Allergies; ad5 - PMHx: 21:51 None; ad5 - PSHx: 21:51 None; ad5 - Immunization history:: Adult Immunizations unknown. - Social history:: Smoking status: unknown. ROS: 02/23 01:00 Constitutional: Negative for fever, chills, and weight loss, Eyes: Negative for injury, mh7 pain, redness, and discharge. Neck: Negative for injury, pain, and swelling, Cardiovascular: Negative for chest pain, palpitations, and edema, Abdomen/GI: Negative for abdominal pain, nausea, vomiting, diarrhea, and constipation, Back: Negative for injury and pain, : Negative for injury, bleeding, discharge, and swelling, MS/Extremity: Negative for injury and deformity, Skin: Negative for injury, rash, and discoloration, Neuro: Negative for headache, weakness, numbness, tingling, and seizure, Psych: Negative for depression, anxiety, suicide ideation, homicidal ideation, and hallucinations, Allergy/Immunology: Negative for hives, rash, and allergies, Endocrine: Negative for neck swelling, polydipsia, polyuria, polyphagia, and marked weight changes, Hematologic/Lymphatic: Negative for swollen nodes, abnormal bleeding, and unusual bruising. ENT: Positive for sore throat. Exam: 01:00 Constitutional: This is a well developed, well nourished patient who is awake, alert, mh7 and in no acute distress. Head/Face: Normocephalic, atraumatic. Eyes: Pupils equal round and reactive to light, extra-ocular motions intact. Lids and lashes normal. Conjunctiva and sclera are non-icteric and not injected. Cornea within normal limits. Periorbital areas with no swelling, redness, or edema. ENT: Nares patent. No nasal discharge, no septal abnormalities noted. Tympanic membranes are normal and external auditory canals are clear. Oropharynx with no redness, swelling, or masses, exudates, or evidence of obstruction, uvula midline. Mucous membranes moist. Neck: Trachea midline, no thyromegaly or masses palpated, and no cervical lymphadenopathy. Supple, full range of motion without nuchal rigidity, or vertebral point tenderness. No Meningismus. Chest/axilla: Normal chest wall appearance and motion. Nontender with no deformity. No lesions are appreciated. Cardiovascular: Regular rate and rhythm with a normal S1 and S2. No gallops, murmurs, or rubs. Normal PMI, no JVD. No pulse deficits. Respiratory: Lungs have equal breath sounds bilaterally, clear to auscultation and percussion. No rales, rhonchi or wheezes noted. No increased work of breathing, no retractions or nasal flaring. Abdomen/GI: Soft, non-tender, with normal bowel sounds. No distension or tympany. No guarding or rebound. No evidence of tenderness throughout. Back: No spinal tenderness. No costovertebral tenderness. Full range of motion. Skin: Warm, dry with normal turgor. Normal color with no rashes, no lesions, and no evidence of cellulitis. MS/ Extremity: Pulses equal, no cyanosis. Neurovascular intact. Full, normal range of motion. Neuro: Awake and alert, GCS 15, oriented to person, place, time, and situation. Cranial nerves II-XII grossly intact. Motor strength 5/5 in all extremities. Sensory grossly intact. Cerebellar exam normal. Normal gait. Psych: Awake, alert, with orientation to person, place and time. Behavior, mood, and affect are within normal limits. Vital Signs: 02/22 21:47 BP 107 / 69; Pulse 113; Resp 18 S; Temp 99.3; Pulse Ox 100% on R/A; Weight 44.45 kg; ad5 Height 5 ft. 4 in. (162.56 cm); 02/23 03:00 BP 112 / 68; Pulse 78; Resp 18; Temp 98.7; Pulse Ox 99% ; ea 02/22 21:47 Body Mass Index 16.82 (44.45 kg, 162.56 cm) ad5 MDM: 02:49 Differential Diagnosis: Obstructed Airway Bronchitis Influenza Upper Respiratory [facility] Infection Pharyngitis Viral Syndrome. Data reviewed: vital signs, nurses notes, lab test result(s), Flu: negative. Data interpreted: Pulse oximetry: on room air is 100 %. Interpretation: normal. Counseling: I had a detailed discussion with the patient and/or guardian regarding: the historical points, exam findings, and any diagnostic results supporting the discharge/admit diagnosis, lab results, radiology results, the need for outpatient follow up, to return to the emergency department if symptoms worsen or persist or if there are any questions or concerns that arise at home. Response to treatment: the patient's symptoms have markedly improved after treatment. Refusal of service: The patient/guardian displays adequate decision making capability and despite a detailed discussion of alternatives, benefits, risks, and consequences refuses: all X-rays. 02:51 Patient medically screened. [facility] 02/23 00:32 Order name: Flu 02/23 00:32 Order name: Strep 02/23 00:32 Order name: COVID-19 : Document "Date of Symptom Onset" if Symptomatic. 02/23 00:33 Order name: Influenza Screen (A ; Complete Time: 02:09 [facility] 02/23 00:33 Order name: Group A Streptococcus Rapid Sc; Complete Time: 02:09 [facility] 02/23 01:06 Order name: PO challenge; Complete Time: 01:32 [facility] 02/23 01:12 Order name: Throat Culture [facility] 02/23 01:38 Order name: SARS-COV-2 RT PCR; Complete Time: 02:09 EDID Administered Medications: 01:29 Drug: Tylenol 1000 mg Route: PO; ea 03:19 Follow up: Response: No adverse reaction ea Disposition: 02/23/21 02:51 Discharged to Home. Impression: Viral Syndrome. - Condition is Stable. - Discharge Instructions: Viral Respiratory Infection, [id number]. - Medication Reconciliation Form, Thank You Letter, Antibiotic Education, Prescription Opioid Use form. - Follow up: Private Physician; When: 1 - 2 days; Reason: Worsening of condition, Recheck today's complaints, Continuance of care, Re-evaluation by your physician. - Problem is new. - Symptoms have improved. Signatures: Dispatcher [employer] [facility] Joyce Green RN RN ea Holmes, Maurice, MD MD 7 Leo Suarez Corrections: (The following items were deleted from the chart) 00:45 00:33 CORONAVIRUS ordered. [facility] 02:53 02:51 02/23/2021 02:51 Discharged to Home. Impression: Viral Syndrome. Condition is mh7 Stable. Forms are Medication Reconciliation Form, Thank You Letter, Antibiotic Education, Prescription Opioid Use. Follow up: Private Physician; When: 1 - 2 days; Reason: Worsening of condition, Recheck today's complaints, Continuance of care, Re-evaluation by your physician. Problem is new. Symptoms have improved. [facility] 02:54 02:53 02/23/2021 02:51 Discharged to Home. Impression: Upper Respiratory Infection. [facility] Condition is Stable. Discharge Instructions: Upper Respiratory Infection, Adult, [id number]. Forms are Medication Reconciliation Form, Thank You Letter, Antibiotic Education, Prescription Opioid Use. Follow up: Private Physician; When: 1 - 2 days; Reason: Worsening of condition, Recheck today's complaints, Continuance of care, Re-evaluation by your physician. Problem is new. Symptoms have improved. [facility] 03:19 02:54 02/23/2021 02:51 Discharged to Home. Impression: Viral Syndrome. Condition is ea Stable. Discharge Instructions: Viral Respiratory Infection, [id number]. Forms are Medication Reconciliation Form, Thank You Letter, Antibiotic Education, Prescription Opioid Use. Follow up: Private Physician; When: 1 - 2 days; Reason: Worsening of condition, Recheck today's complaints, Continuance of care, Re-evaluation by your physician. Problem is new. Symptoms have improved. 7
[2021-02-23 03:25] VITALS: BP 112/68; TEMP 98.7; O2SAT 99
== END 2021-02-23 03:19 | disposition home or self-care (01) ==
LOC: ER 21:38
DX: O98.511 Other viral diseases complicating pregnancy, first trimester (principal); B34.9 Viral infection, unspecified; Z3A.10 10 weeks gestation of pregnancy; Z20.822 Contact with and (suspected) exposure to COVID-19
CPT/HCPCS: 87070; 87081; 87804 ×2; U0003; 99283

== ENCOUNTER 2023-12-21 12:43 | Emergency (ER) | payer SELFPAY ==
[2023-12-21 13:41] LABS: SARS-CoV-2 Antigen CONTROL BLUE LINE VIS/BG OK; SARS-CoV-2 Antigen Rapid Res Negative (Negative)
--- NOTE | 2023-12-21 14:14 | EDPHYS ---
Physician Documentation [facility] Name: Chaparrita Duggan Age: 23 yrs Sex: Female : 2000 Arrival Date: 12/21/2023 Time: 12:43 Bed 12 Private MD: ED Physician Kaitlynn Ramos HPI: 12/20 12:59 This 23 yrs old Female presents to ER via Ambulatory with complaints of Cough, kb Sore Throat. 12:59 Pt is a 23 year old female who presents for cough, congestion, sore throat for 2 days. kb Denies fever, n/v/d. . 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 - Infectious Disease History:: Denies. - Social history:: Smoking status: Patient denies any tobacco usage or history of. ROS: 12:59 Constitutional: As per HPI kb Exam: 12:59 Constitutional: This is a well developed, well nourished patient who is awake, alert, kb and in no acute distress. Head/Face: Normocephalic, atraumatic. ENT: Moist Mucous membranes Cardiovascular: Regular rate Respiratory: Respirations even and unlabored. No increased work of breathing. Talking in full sentences Skin: Warm, dry with normal turgor. Normal color. MS/ Extremity: Pulses equal, no cyanosis. Neurovascular intact. Full, normal range of motion. Neuro: Awake and alert, GCS 15, oriented to person, place, time, and situation. Moves all extremities. Normal gait. Vital Signs: 12:49 BP 112 / 78; Pulse 81; Resp 16; Temp 97.2; Pulse Ox 100% on R/A; Weight 47.63 kg; iw Height 5 ft. 4 in. ; Pain 4/10; 12:49 Body Mass Index 18.02 (47.63 kg, 162.56 cm) iw 12:49 Pain Scale: Adult iw MDM: 12:58 Patient medically screened. kb 13:00 Differential Diagnosis: Other covid, flu, strep, uri, allergic rhinitis. Data reviewed: kb vital signs, nurses notes. 14:13 Counseling: I had a detailed discussion with the patient and/or guardian regarding the kb historical points, exam findings, and any diagnostic results supporting the discharge/admit diagnosis, lab results, the need for outpatient follow up, a family practitioner, to return to the emergency department if symptoms worsen or persist or if there are any questions or concerns that arise at home. 12/20 13:01 Order name: Strep kb 12/20 13:01 Order name: SARS-COV-2 Antigen Rapid; Complete Time: 13:54 kb 12/20 13:01 Order name: Flu; Complete Time: 14:13 kb 12/20 13:43 Order name: Throat Culture EDMS Administered Medications: No medications were administered Disposition Summary: 12/21/23 14:14 Discharge Ordered Notes: Location: Home kb Condition: Stable kb Diagnosis - Acute upper respiratory infection, unspecified kb Followup: kb - With: Emergency Department - When: As needed - Reason: Worsening of condition Followup: kb - With: Private Physician - When: 2 - 3 days - Reason: Recheck today's complaints, Continuance of care, Re-evaluation by your physician Discharge Instructions: - Discharge Summary Sheet kb - Upper Respiratory Infection, Adult, [id number] kb - Viral Respiratory Infection, [id number] kb Forms: - Medication Reconciliation Form kb - Antibiotic Education kb - Prescription Opioid Use kb - Patient Portal Instructions kb - Leadership Thank You Letter kb Signatures: Dispatcher [employer] Mary Ugarte, SHIVANI-C SHIVANI-Annamaria Callejas, RN RN iw
--- NOTE | 2023-12-21 14:14 | ER ---
Nurse's Notes [facility] Name: Chaparrita Duggan Age: 23 yrs Sex: Female : 2000 Arrival Date: 12/21/2023 Time: 12:43 Bed 12 Private MD: Diagnosis: Acute upper respiratory infection, unspecified Presentation: 12/20 12:49 Chief complaint: Patient states: Cough, congestion, sore throat since Tuesday. Not iw eating as much because it mccall. Coronavirus screen: Vaccine status: Patient reports receiving the 1st dose of the Covid vaccine. Client denies travel out of the [place] in the last 14 days. congestion, cough unrelated to allergies, fatigue, sore throat, Client presents with at least one sign or symptom that may indicate coronavirus-19. Standard/surgical mask placed on the client. Ebola Screen: Patient denies travel to an Ebola-affected area in the 21 days before illness onset. Initial Sepsis Screen: Does the patient meet any 2 criteria? No. Patient's initial sepsis screen is negative. Does the patient have a suspected source of infection? No. Patient's initial sepsis screen is negative. Risk Assessment: Do you want to hurt yourself or someone else? Patient reports no desire to harm self or others. Onset of symptoms was December 19, 2023. 12:49 Method Of Arrival: Ambulatory iw 12:49 Acuity: HONG 4 iw Triage Assessment: 12:51 General: Appears in no apparent distress. Behavior is calm, cooperative, appropriate iw for age. Pain: Complains of pain in throat Pain currently is 4 out of 10 on a pain scale. Quality of pain is described as burning, aching. EENT: Reports pain when swallowing. EENT: Reports nasal congestion. Respiratory: Reports cough that is. 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 - Infectious Disease History:: Denies. - Social history:: Smoking status: Patient denies any tobacco usage or history of. Screenin:54 [facility] ED Fall Risk Assessment (Adult) History of falling in the last 3 months, mb9 including since admission No falls in past 3 months (0 pts) Confusion or Disorientation No (0 pts) Intoxicated or Sedated No (0 pts) Impaired Gait No (0 pts) Mobility Assist Device Used No (0 pt) Altered Elimination No (0 pt) Score/Fall Risk Level 0 - 2 = Low Risk Oriented to surroundings, Maintained a safe environment, Educated pt \T\ family on fall prevention, incl call for assistance when getting out of bed, Assessed \T\ reinforced patient's understanding of fall precautions, Provided non-skid footwear. Abuse screen: Denies threats or abuse. Nutritional screening: No deficits noted. Tuberculosis screening: No symptoms or risk factors identified. Assessment: 13:55 General: Appears in no apparent distress. Behavior is calm, cooperative. Pain: mb9 Complains of pain in throat Pain does not radiate. Neuro: [place] Agitation-Sedation Scale (RASS): 0 - Alert and Calm Level of Consciousness is awake, alert, obeys commands, Oriented to person, place, time, situation, Appropriate for age. Cardiovascular: Patient's skin is warm and dry. Respiratory: Reports cough that is Airway is patent Respiratory effort is even, unlabored, Respiratory pattern is regular, symmetrical, Breath sounds are clear bilaterally. GI: No signs and/or symptoms were reported involving the gastrointestinal system. : No signs and/or symptoms were reported regarding the genitourinary system. EENT: Throat is reddened. Derm: Skin is pink, warm \T\ dry. Musculoskeletal: Range of motion: intact in all extremities. Vital Signs: 12:49 BP 112 / 78; Pulse 81; Resp 16; Temp 97.2; Pulse Ox 100% on R/A; Weight 47.63 kg; iw Height 5 ft. 4 in. ; Pain 4/10; 12:49 Body Mass Index 18.02 (47.63 kg, 162.56 cm) iw 12:49 Pain Scale: Adult iw ED Course: 12:44 Patient arrived in ED. rg4 12:51 Triage completed. iw 12:51 Arm band placed on. iw 12:58 Mary Apple [facility]-C [facility]. kb 12:58 Kaitlynn Ramos MD is Attending Physician. kb 13:04 SARS-COV-2 Antigen Rapid Sent. ll1 13:04 Flu Sent. ll1 13:52 Reny Roche, RN is Primary Nurse. mb9 13:54 Placed in gown. Bed in low position. Call light in reach. Side rails up X 1. Provided mb9 Education on: press call light if needing anything. Client placed on continuous cardiac and pulse oximetry monitoring. NIBP monitoring applied. 13:55 No provider procedures requiring assistance completed. mb9 14:19 Patient did not have IV access during this emergency room visit. mb9 Administered Medications: No medications were administered Medication: 13:55 VIS not applicable for this client. mb9 Outcome: 14:14 Discharge ordered by . kb 14:19 Discharged to pt left ER without signing paperwork mb9 14:20 Condition: stable mb9 14:20 Discharge instructions given to pt left ER without signing paperwork 14:20 Patient left the ED. mb9 Signatures: Mary Apple, 2[employer] GRADE TEACHER-C 2ND GRADE TEACHER-CkAnnamaria Barrow, RN Kristine Herrera rg4 Michael Schmidt RN RN 1 Reny Roche, RN RN mb9
[2023-12-21 15:13] VITALS: BP 112/78; TEMP 97.2; O2SAT 100
== END 2023-12-21 14:20 | disposition home or self-care (01) ==
LOC: ER 12:43
DX: J06.9 Acute upper respiratory infection, unspecified (principal); Z11.52 Encounter for screening for COVID-19
CPT/HCPCS: 36415; 87070; 87081; 87804; 87811; 99283